=== PATIENT | female | born 1955 | race Caucasian/White ===

== ENCOUNTER → 2017-10-24 | Outpatient (CLI) | payer BC ==
[~2017-10-24] MED LIST: ALPR.25T PO; ASP81TEC; ASP81TEC PO; BYSTOLIC PO; CETI10TA17; CPR500T PO; DEXL30CA2 PO; ESCI10TA PO; ESCT10T; FLUT50DI; FLUT9.9S NS; HYDR12.56 PO; KETO-22 PO; LANS30CA; LEVO75TA57 PO; LORA-404 PO; LORA-877 PO; LORA10TA7 PO; NEBI5TAB8 PO; OMEP-254 PO; ONDA8TAB13 PO; ONDAN4ODT PO; PANT40SU PO; RNT150T; ROSU10TA PO; SERT50TA9 PO; SULF1TAB35 PO
== END ==
LOC: CARD 08:03
PROVIDERS: ATTEND Family Medicine
DX: R00.1 Bradycardia, unspecified (principal)
CPT/HCPCS: 93225; 93226

== ENCOUNTER 2019-01-28 17:27 | Emergency (ER) | payer BC ==
[~2019-01-28 17:27] MED LIST changes: -ROSU10TA PO; +ROSU10TA22 PO
--- OUTSIDE RECORDS SUMMARY | 2019-01-28 23:14 | XMS REPORT | Continuity of Care Document ---
Author Organization Unknown Address Unknown Allergies Active Description Code Type Severity Reaction Onset Reported/Identified Relationship to Patient Clinical Status Yes No Known Drug Allergies [id number] Drug Allergy Unknown N/A 12/08/2009 Medications There is no data. Problems Date Dx Coded Attending Type Code Diagnosis Diagnosed By 08/08/2011 Ot 789.00 ABDOMINAL PAIN, UNSPECIFIED SITE 08/08/2011 Ot 789.09 ABDOMINAL PAIN, OTHER SPECIFIED SITE 10/28/2011 Ot 530.81 ESOPHAGEAL REFLUX 10/28/2011 Ot 535.40 OTH SPECIFIED GASTRITIS,W/O MENTION OF H 10/28/2011 Ot 553.3 DIAPHRAGMATIC HERNIA 11/28/2011 Ot 780.2 SYNCOPE AND COLLAPSE 11/28/2011 Ot 780.4 DIZZINESS AND GIDDINESS 07/02/2012 Ot 211.3 BENIGN NEOPLASM LG BOWEL 07/02/2012 Ot 244.9 HYPOTHYROIDISM NOS 07/02/2012 Ot 300.00 ANXIETY STATE NOS 07/02/2012 Ot V12.72 PERSONAL HISTORY OF COLONIC POLYPS 07/02/2012 Ot V58.69 OTH MED,LT,CURRENT USE 07/11/2014 VERONA DIXON, CANDI Horvath Ot 272.4 10/23/2014 SERINA MEHTA MD Ot 786.50 04/30/2015 SERINA MEHTA MD Ot 786.50 04/30/2015 SERINA MEHTA MD Ot 786.50 07/09/2015 COLENDER DO, KIMBERLY S Ot E78.5 07/09/2015 ORENDER DO, KIMBERLY S Ot I10 07/09/2015 COLENDER DO, KIMBERLY S Ot R53.83 07/09/2015 ORENDER DO, KIMBERLY S Ot Z00.00 07/09/2015 SERINA MEHTA MD Ot E03.9 07/09/2015 SERINA MEHTA MD Ot E78.5 07/09/2015 SERINA MEHTA MD Ot I10 07/09/2015 SERINA MEHTA MD Ot K21.9 01/07/2016 TEREZA CAMPOS LEVERMAN Ot F41.9 ANXIETY DISORDER, UNSPECIFIED 01/07/2016 TEREZA CAMPOS LEVERMAN Ot R07.89 OTHER CHEST PAIN 01/07/2016 TEREZA CAMPOS LEVERMAN Ot R42 DIZZINESS AND GIDDINESS 01/08/2016 TEREZA CAMPOS LEVERMAN Ot F41.9 ANXIETY DISORDER, UNSPECIFIED 01/08/2016 TEREZA CAMPOS LEVERMAN Ot R07.89 OTHER CHEST PAIN 01/08/2016 TEREZA CAMPOS LEVERMAN Ot R42 DIZZINESS AND GIDDINESS 01/08/2016 CHARLY DUMONT, MITALI Bond Ot F41.9 ANXIETY DISORDER, UNSPECIFIED 01/08/2016 CHARLY DUMONT, MITALI Bond Ot R47.81 SLURRED SPEECH 01/08/2016 Ot 793.81 MAMMOGRAPHIC MICROCLACIFICATION 01/08/2016 Ot V76.12 OTH SCREEN MAMMO- MALIGN NEOPLASM OF TAZ 01/08/2016 Ot 793.89 OTH (ABN) FINDINGS ON RADIOLOGICAL EXAMI 01/08/2016 Ot 625.9 FEM GENITAL SYMPTOMS NOS 01/08/2016 Ot 719.45 JOINT PAIN-PELVIS 01/08/2016 Ot 625.9 FEM GENITAL SYMPTOMS NOS 01/08/2016 Ot V17.81 FAMILY HISTORY, OSTEOPOROSIS 01/08/2016 Ot V49.81 ASYMPT POSTMENOPAUSAL STATUS (AGE-RELATE 01/08/2016 Ot V82.81 SCREENING FOR OSTEOPOROSIS 01/08/2016 Ot 724.2 LUMBAGO 01/08/2016 Ot V72.84 EXAM PRE-OPERATIVE NOS 01/08/2016 Ot 433.30 MULT BILTRAL ARTERY OCCLUSION WO CEREBRA 01/08/2016 Ot 780.2 SYNCOPE AND COLLAPSE 01/08/2016 Ot 780.4 DIZZINESS AND GIDDINESS 01/08/2016 Ot V72.84 EXAM PRE-OPERATIVE NOS 01/08/2016 Ot 719.46 JOINT PAIN-L/LEG 01/08/2016 Ot V76.12 OTH SCREEN MAMMO- MALIGN NEOPLASM OF [place] 01/08/2016 Ot 401.9 HYPERTENSION NOS 01/08/2016 Ot 780.4 DIZZINESS AND GIDDINESS 01/08/2016 Ot 785.0 TACHYCARDIA NOS 01/08/2016 VANBECELAERE, ELIECER M KENNEL AIDE Ot 251.2 HYPOGLYCEMIA NOS 01/08/2016 Ot 401.9 HYPERTENSION NOS 01/08/2016 Ot 780.4 DIZZINESS AND GIDDINESS 01/08/2016 Ot 785.0 TACHYCARDIA NOS 01/08/2016 Ot 272.4 HYPERLIPIDEMIA NEC/NOS 01/08/2016 Ot 397.0 TRICUSPID VALVE DISEASE 01/08/2016 Ot 401.9 HYPERTENSION NOS 01/08/2016 Ot 424.0 MITRAL VALVE DISORDER 01/08/2016 INES SINGH KENNEL AIDE Ot 789.01 ABDOMINAL PAIN, RIGHT UPPER QUADRANT 01/08/2016 SERINA MEHTA MD Ot 272.4 HYPERLIPIDEMIA NEC/NOS 01/08/2016 SERINA MEHTA MD Ot 401.9 HYPERTENSION NOS 01/08/2016 SERINA MEHTA MD Ot 272.4 HYPERLIPIDEMIA NEC/NOS 01/08/2016 SERINA MEHTA MD Ot 401.9 HYPERTENSION NOS 01/08/2016 ORENDER DO, KIMBERLY S Ot 244.9 HYPOTHYROIDISM NOS 01/08/2016 ORENDER DO, KIMBERLY S Ot 401.9 HYPERTENSION NOS 01/08/2016 ORENDER DO, KIMBERLY S Ot 611.71 MASTODYNIA 01/08/2016 ORENDER DO, KIMBERLY S Ot 780.79 OTH MALAISE FATIGUE 01/08/2016 CANDI SLOAN Ot 272.4 HYPERLIPIDEMIA NEC/NOS 01/08/2016 SERINA MEHTA MD Ot 786.50 CHEST PAIN NOS 01/08/2016 ORENDER DO, KIMBERLY S Ot E78.5 HYPERLIPIDEMIA, UNSPECIFIED 01/08/2016 ORENDER DO, KIMBERLY S Ot I10 ESSENTIAL (PRIMARY) HYPERTENSION 01/08/2016 ORENDER DO, KIMBERLY S Ot R53.83 OTHER FATIGUE 01/08/2016 ORENDER DO, KIMBERLY S Ot Z00.00 ENCNTR FOR GENERAL ADULT MEDICAL EXAM W/ 01/08/2016 SERINA MEHTA MD Ot E03.9 HYPOTHYROIDISM, UNSPECIFIED 01/08/2016 SERINA MEHTA MD Ot E78.5 HYPERLIPIDEMIA, UNSPECIFIED 01/08/2016 SERINA MEHTA MD Ot I10 ESSENTIAL (PRIMARY) HYPERTENSION 01/08/2016 SERINA MEHTA MD Ot K21.9 GASTRO-ESOPHAGEAL REFLUX DISEASE WITHOUT 01/11/2016 CHARLY DUMONT, MITALI Bond Ot F41.9 ANXIETY DISORDER, UNSPECIFIED 01/11/2016 CHARLY DUMONT, MITALI Bond Ot R47.81 SLURRED SPEECH 01/11/2016 CHARLY DUMONT, MITALI Bond Ot F41.9 ANXIETY DISORDER, UNSPECIFIED 01/11/2016 CHARLY DUMONT, MITALI Bond Ot R47.81 SLURRED SPEECH 01/13/2016 TEREZA CAMPOS LEVERMAN Ot F41.9 ANXIETY DISORDER, UNSPECIFIED 01/13/2016 TEREZA CAMPOS LEVERMAN Ot R07.89 OTHER CHEST PAIN 01/13/2016 TEREZA CAMPOS LEVERMAN Ot R42 DIZZINESS AND GIDDINESS 03/09/2016 Ot 793.81 MAMMOGRAPHIC MICROCLACIFICATION 03/09/2016 Ot V76.12 OTH SCREEN MAMMO- MALIGN NEOPLASM OF TA[place] 03/09/2016 Ot 793.89 OTH (ABN) FINDINGS ON RADIOLOGICAL EXAMI 03/09/2016 Ot 625.9 FEM GENITAL SYMPTOMS NOS 03/09/2016 Ot 719.45 JOINT PAIN-PELVIS 03/09/2016 Ot 625.9 FEM GENITAL SYMPTOMS NOS 03/09/2016 Ot V17.81 FAMILY HISTORY, OSTEOPOROSIS 03/09/2016 Ot V49.81 ASYMPT POSTMENOPAUSAL STATUS (AGE-RELATE 03/09/2016 Ot V82.81 SCREENING FOR OSTEOPOROSIS 03/09/2016 Ot 724.2 LUMBAGO 03/09/2016 Ot V72.84 EXAM PRE-OPERATIVE NOS 03/09/2016 Ot 433.30 MULT BILTRAL ARTERY OCCLUSION WO CEREBRA 03/09/2016 Ot 780.2 SYNCOPE AND COLLAPSE 03/09/2016 Ot 780.4 DIZZINESS AND GIDDINESS 03/09/2016 Ot V72.84 EXAM PRE-OPERATIVE NOS 03/09/2016 Ot 719.46 JOINT PAIN-L/LEG 03/09/2016 Ot V76.12 OTH SCREEN MAMMO- MALIGN NEOPLASM OF [place] 03/09/2016 Ot 401.9 HYPERTENSION NOS 03/09/2016 Ot 780.4 DIZZINESS AND GIDDINESS 03/09/2016 Ot 785.0 TACHYCARDIA NOS 03/09/2016 ELIECER RODARTE KENNEL AIDE Ot 251.2 HYPOGLYCEMIA NOS 03/09/2016 Ot 401.9 HYPERTENSION NOS 03/09/2016 Ot 780.4 DIZZINESS AND GIDDINESS 03/09/2016 Ot 785.0 TACHYCARDIA NOS 03/09/2016 Ot 272.4 HYPERLIPIDEMIA NEC/NOS 03/09/2016 Ot 397.0 TRICUSPID VALVE DISEASE 03/09/2016 Ot 401.9 HYPERTENSION NOS 03/09/2016 Ot 424.0 MITRAL VALVE DISORDER 03/09/2016 INES SINGH Ot 789.01 ABDOMINAL PAIN, RIGHT UPPER QUADRANT 03/09/2016 SERINA MEHTA MD Ot 272.4 HYPERLIPIDEMIA NEC/NOS 03/09/2016 SERINA MEHTA MD Ot 401.9 HYPERTENSION NOS 03/09/2016 SERINA MEHTA MD Ot 272.4 HYPERLIPIDEMIA NEC/NOS 03/09/2016 SERINA MEHTA MD Ot 401.9 HYPERTENSION NOS 03/09/2016 ORENDER DO, KIMBERLY S Ot 244.9 HYPOTHYROIDISM NOS 03/09/2016 ORENDER DO, KIMBERLY S Ot 401.9 HYPERTENSION NOS 03/09/2016 ORENDER DO, KIMBERLY S Ot 611.71 MASTODYNIA 03/09/2016 ORENDER DO, KIMBERLY S Ot 780.79 OTH MALAISE FATIGUE 03/09/2016 CANDI SLOAN Ot 272.4 HYPERLIPIDEMIA NEC/NOS 03/09/2016 SERINA MEHTA MD Ot 786.50 CHEST PAIN NOS 03/09/2016 ORENDER DO, KIMBERLY S Ot E78.5 HYPERLIPIDEMIA, UNSPECIFIED 03/09/2016 ORENDER DO, KIBMERLY S Ot I10 ESSENTIAL (PRIMARY) HYPERTENSION 03/09/2016 COLENDER DO, KIMBERLY S Ot R53.83 OTHER FATIGUE 03/09/2016 ORENDER DO, KIMBERLY S Ot Z00.00 ENCNTR FOR GENERAL ADULT MEDICAL EXAM W/ 03/09/2016 SERINA MEHTA MD Ot E03.9 HYPOTHYROIDISM, UNSPECIFIED 03/09/2016 SERINA MEHTA MD Ot E78.5 HYPERLIPIDEMIA, UNSPECIFIED 03/09/2016 SERINA MEHTA MD Ot I10 ESSENTIAL (PRIMARY) HYPERTENSION 03/09/2016 SERINA MEHTA MD Ot K21.9 GASTRO-ESOPHAGEAL REFLUX DISEASE WITHOUT 03/09/2016 BRYANT WHITE MD Ot E87.1 HYPO-OSMOLALITY AND HYPONATREMIA 03/09/2016 BRYANT WHITE MD Ot F41.9 ANXIETY DISORDER, UNSPECIFIED 03/09/2016 BRYANT WHITE MD Ot I10 ESSENTIAL (PRIMARY) HYPERTENSION 03/09/2016 CHRISTOPHER DUMONT, BRYANT Youngblood Ot K11.7 DISTURBANCES OF SALIVARY SECRETION 03/09/2016 BRYANT WHITE MD Ot R11.0 NAUSEA 03/29/2016 Ot 793.81 MAMMOGRAPHIC MICROCLACIFICATION 03/29/2016 Ot V76.12 OTH SCREEN MAMMO- MALIGN NEOPLASM OF [place] 03/29/2016 Ot 793.89 OTH (ABN) FINDINGS ON RADIOLOGICAL EXAMI 03/29/2016 Ot 625.9 FEM GENITAL SYMPTOMS NOS 03/29/2016 Ot 719.45 JOINT PAIN-PELVIS 03/29/2016 Ot 625.9 FEM GENITAL SYMPTOMS NOS 03/29/2016 Ot V17.81 FAMILY HISTORY, OSTEOPOROSIS 03/29/2016 Ot V49.81 ASYMPT POSTMENOPAUSAL STATUS (AGE-RELATE 03/29/2016 Ot V82.81 SCREENING FOR OSTEOPOROSIS 03/29/2016 Ot 724.2 LUMBAGO 03/29/2016 Ot V72.84 EXAM PRE-OPERATIVE NOS 03/29/2016 Ot 433.30 MULT BILTRAL ARTERY OCCLUSION WO CEREBRA 03/29/2016 Ot 780.2 SYNCOPE AND COLLAPSE 03/29/2016 Ot 780.4 DIZZINESS AND GIDDINESS 03/29/2016 Ot V72.84 EXAM PRE-OPERATIVE NOS 03/29/2016 Ot 719.46 JOINT PAIN-L/LEG 03/29/2016 Ot V76.12 OTH SCREEN MAMMO- MALIGN NEOPLASM OF TA[place] 03/29/2016 Ot 401.9 HYPERTENSION NOS 03/29/2016 Ot 780.4 DIZZINESS AND GIDDINESS 03/29/2016 Ot 785.0 TACHYCARDIA NOS 03/29/2016 ELIECER RODARTE KENNEL AIDE Ot 251.2 HYPOGLYCEMIA NOS 03/29/2016 Ot 401.9 HYPERTENSION NOS 03/29/2016 Ot 780.4 DIZZINESS AND GIDDINESS 03/29/2016 Ot 785.0 TACHYCARDIA NOS 03/29/2016 Ot 272.4 HYPERLIPIDEMIA NEC/NOS 03/29/2016 Ot 397.0 TRICUSPID VALVE DISEASE 03/29/2016 Ot 401.9 HYPERTENSION NOS 03/29/2016 Ot 424.0 MITRAL VALVE DISORDER 03/29/2016 INES SINGHP Ot 789.01 ABDOMINAL PAIN, RIGHT UPPER QUADRANT 03/29/2016 SERINA MEHTA MD Ot 272.4 HYPERLIPIDEMIA NEC/NOS 03/29/2016 SERINA MEHTA MD Ot 401.9 HYPERTENSION NOS 03/29/2016 SERINA MEHTA MD Ot 272.4 HYPERLIPIDEMIA NEC/NOS 03/29/2016 SERINA MEHTA MD Ot 401.9 HYPERTENSION NOS 03/29/2016 ORENDER DO, KIMBERLY S Ot 244.9 HYPOTHYROIDISM NOS 03/29/2016 ORENDER DO, KIMBERLY S Ot 401.9 HYPERTENSION NOS 03/29/2016 ORENDER DO, KIMBERLY S Ot 611.71 MASTODYNIA 03/29/2016 ORENDER DO, KIMBERLY S Ot 780.79 OTH MALAISE FATIGUE 03/29/2016 CANDI SLOAN Ot 272.4 HYPERLIPIDEMIA NEC/NOS 03/29/2016 SERINA MEHTA MD Ot 786.50 CHEST PAIN NOS 03/29/2016 ORENDER DO, KIMBERLY S Ot E78.5 HYPERLIPIDEMIA, UNSPECIFIED 03/29/2016 ORENDER DO, KIMBERLY S Ot I10 ESSENTIAL (PRIMARY) HYPERTENSION 03/29/2016 ORENDER DO, KIMBERLY S Ot R53.83 OTHER FATIGUE 03/29/2016 ORENDER DO, KIMBERLY S Ot Z00.00 ENCNTR FOR GENERAL ADULT MEDICAL EXAM W/ 03/29/2016 SERINA MEHTA MD Ot E03.9 HYPOTHYROIDISM, UNSPECIFIED 03/29/2016 SERINA MEHTA MD Ot E78.5 HYPERLIPIDEMIA, UNSPECIFIED 03/29/2016 SERINA MEHTA MD Ot I10 ESSENTIAL (PRIMARY) HYPERTENSION 03/29/2016 SERINA MEHTA MD Ot K21.9 GASTRO-ESOPHAGEAL REFLUX DISEASE WITHOUT 03/30/2016 MAYCO RANKIN LEVERMAN Ot R07.9 CHEST PAIN, UNSPECIFIED 03/30/2016 MAYCO RANKIN LEVERMAN Ot R53.83 OTHER FATIGUE 03/30/2016 MAYCO RANKIN LEVERMAN Ot R61 GENERALIZED HYPERHIDROSIS 03/30/2016 MAYCO RANKIN LEVERMAN Ot R07.9 CHEST PAIN, UNSPECIFIED 03/30/2016 MAYCO RANKIN LEVERMAN Ot R53.83 OTHER FATIGUE 03/30/2016 MASSIELMAYCO LEVERMAN Ot R61 GENERALIZED HYPERHIDROSIS 04/01/2016 BRYANT WHITE MD Ot E87.1 HYPO-OSMOLALITY AND HYPONATREMIA 04/01/2016 CHRISTOPHER DUMONT, BRYANT Youngblood Ot F41.9 ANXIETY DISORDER, UNSPECIFIED 04/01/2016 BRYANT WHITE MD Ot I10 ESSENTIAL (PRIMARY) HYPERTENSION 04/01/2016 BRYANT WHITE MD Ot K11.7 DISTURBANCES OF SALIVARY SECRETION 04/01/2016 CHRISTOPHER DUMONT, BRYANT Youngblood Ot R11.0 NAUSEA 04/05/2016 MASSIEL MAYCOBETTY Shelton APRN Ot E87.1 HYPO-OSMOLALITY AND HYPONATREMIA 04/25/2016 MASSIEL MAYCOBETTY Shelton APRN Ot R07.9 CHEST PAIN, UNSPECIFIED 04/25/2016 MASSIEL MAYCO N LEVERMAN Ot R53.83 OTHER FATIGUE 04/25/2016 MAYCO RANKIN APRN Ot R61 GENERALIZED HYPERHIDROSIS 04/25/2016 MASSIEL MAYCO Nikita LEVERMAN Ot E87.1 HYPO-OSMOLALITY AND HYPONATREMIA 05/11/2016 CARCAMO DO, WEI L Ot E16.2 HYPOGLYCEMIA, UNSPECIFIED 05/11/2016 CARCAMO DO, WEI L Ot E87.1 HYPO-OSMOLALITY AND HYPONATREMIA 05/11/2016 CARCAMO DO, WEI L Ot R53.83 OTHER FATIGUE 05/18/2016 CARCAMO DO, WEI L Ot E16.2 HYPOGLYCEMIA, UNSPECIFIED 05/18/2016 CARCAMO DO, WEI L Ot E87.1 HYPO-OSMOLALITY AND HYPONATREMIA 05/18/2016 CARCAMO DO, WEI L Ot R53.83 OTHER FATIGUE 07/29/2016 Ot 793.81 MAMMOGRAPHIC MICROCLACIFICATION 07/29/2016 Ot V76.12 OTH SCREEN MAMMO- MALIGN NEOPLASM OF TAZ 07/29/2016 Ot 793.89 OTH (ABN) FINDINGS ON RADIOLOGICAL EXAMI 07/29/2016 Ot 625.9 FEM GENITAL SYMPTOMS NOS 07/29/2016 Ot 719.45 JOINT PAIN-PELVIS 07/29/2016 Ot 625.9 FEM GENITAL SYMPTOMS NOS 07/29/2016 Ot V17.81 FAMILY HISTORY, OSTEOPOROSIS 07/29/2016 Ot V49.81 ASYMPT POSTMENOPAUSAL STATUS (AGE-RELATE 07/29/2016 Ot V82.81 SCREENING FOR OSTEOPOROSIS 07/29/2016 Ot 724.2 LUMBAGO 07/29/2016 Ot V72.84 EXAM PRE-OPERATIVE NOS 07/29/2016 Ot 433.30 MULT BILTRAL ARTERY OCCLUSION WO CEREBRA 07/29/2016 Ot 780.2 SYNCOPE AND COLLAPSE 07/29/2016 Ot 780.4 DIZZINESS AND GIDDINESS 07/29/2016 Ot V72.84 EXAM PRE-OPERATIVE NOS 07/29/2016 Ot 719.46 JOINT PAIN-L/LEG 07/29/2016 Ot V76.12 OTH SCREEN MAMMO- MALIGN NEOPLASM OF TA[place] 07/29/2016 Ot 401.9 HYPERTENSION NOS 07/29/2016 Ot 780.4 DIZZINESS AND GIDDINESS 07/29/2016 Ot 785.0 TACHYCARDIA NOS 07/29/2016 ELIECER RODARTE KENNEL AIDE Ot 251.2 HYPOGLYCEMIA NOS 07/29/2016 Ot 401.9 HYPERTENSION NOS 07/29/2016 Ot 780.4 DIZZINESS AND GIDDINESS 07/29/2016 Ot 785.0 TACHYCARDIA NOS 07/29/2016 Ot 272.4 HYPERLIPIDEMIA NEC/NOS 07/29/2016 Ot 397.0 TRICUSPID VALVE DISEASE 07/29/2016 Ot 401.9 HYPERTENSION NOS 07/29/2016 Ot 424.0 MITRAL VALVE DISORDER 07/29/2016 INES SINGH KENNEL AIDE Ot 789.01 ABDOMINAL PAIN, RIGHT UPPER QUADRANT 07/29/2016 SERINA MEHTA MD Ot 272.4 HYPERLIPIDEMIA NEC/NOS 07/29/2016 SERINA MEHTA MD Ot 401.9 HYPERTENSION NOS 07/29/2016 SERINA MEHTA MD Ot 272.4 HYPERLIPIDEMIA NEC/NOS 07/29/2016 SERINA MEHTA MD Ot 401.9 HYPERTENSION NOS 07/29/2016 ORENDER DO, KIMBERLY S Ot 244.9 HYPOTHYROIDISM NOS 07/29/2016 COLENDER DO, KIMBERLY S Ot 401.9 HYPERTENSION NOS 07/29/2016 ORENDER DO, KIMBERLY S Ot 611.71 MASTODYNIA 07/29/2016 COLENDCARRINGTON DO KIMBERLY S Ot 780.79 OTH MALAISE FATIGUE 07/29/2016 JENSEN-MARISSA PA, CANDI K Ot 272.4 HYPERLIPIDEMIA NEC/NOS 07/29/2016 SERINA MEHTA MD Ot 786.50 CHEST PAIN NOS 07/29/2016 COLENDER , KIMBERLY S Ot E78.5 HYPERLIPIDEMIA, UNSPECIFIED 07/29/2016 ORENDER DO, KIMBERLY S Ot I10 ESSENTIAL (PRIMARY) HYPERTENSION 07/29/2016 COLENDER , KIMBERLY S Ot R53.83 OTHER FATIGUE 07/29/2016 COLENDER DO, KIMBERLY S Ot Z00.00 ENCNTR FOR GENERAL ADULT MEDICAL EXAM W/ 07/29/2016 SERINA MEHTA MD Ot E03.9 HYPOTHYROIDISM, UNSPECIFIED 07/29/2016 SERINA MEHTA MD Ot E78.5 HYPERLIPIDEMIA, UNSPECIFIED 07/29/2016 SERINA MEHTA MD, Ot I10 ESSENTIAL (PRIMARY) HYPERTENSION 07/29/2016 SERINA MEHTA MD Ot K21.9 GASTRO-ESOPHAGEAL REFLUX DISEASE WITHOUT 07/29/2016 MAYCO RANKIN LEVERMAN Ot R07.9 CHEST PAIN, UNSPECIFIED 07/29/2016 MAYCO RANKIN LEVERMAN Ot R53.83 OTHER FATIGUE 07/29/2016 MAYCO RANKIN LEVERMAN Ot R61 GENERALIZED HYPERHIDROSIS 07/29/2016 MAYCO RANKIN LEVERMAN Ot E87.1 HYPO-OSMOLALITY AND HYPONATREMIA 07/29/2016 WEI CARCAMO DO Ot E16.2 HYPOGLYCEMIA, UNSPECIFIED 07/29/2016 WEI CARCAMO DO Ot E87.1 HYPO-OSMOLALITY AND HYPONATREMIA 07/29/2016 WEI CARCAMO DO Ot R53.83 OTHER FATIGUE 08/01/2016 SERINA MEHTA MD Ot E78.2 MIXED HYPERLIPIDEMIA 08/01/2016 SERINA MEHTA MD Ot I10 ESSENTIAL (PRIMARY) HYPERTENSION 08/01/2016 SERINA MEHTA MD Ot I25.10 ATHSCL HEART DISEASE OF [place] CORONARY 08/01/2016 SERINA MEHTA MD Ot R07.89 OTHER CHEST PAIN 08/04/2016 SERINA MEHTA MD Ot E78.2 MIXED HYPERLIPIDEMIA 08/04/2016 SERINA MEHTA MD Ot I10 ESSENTIAL (PRIMARY) HYPERTENSION 08/04/2016 SERINA MEHTA MD Ot I25.10 ATHSCL HEART DISEASE OF [place] CORONARY 08/04/2016 SERINA MEHTA MD Ot R07.89 OTHER CHEST PAIN 08/10/2016 SERINA MEHTA MD Ot E78.2 MIXED HYPERLIPIDEMIA 08/10/2016 SERINA MEHTA MD Ot I10 ESSENTIAL (PRIMARY) HYPERTENSION 08/10/2016 SERINA MEHTA MD Ot I25.10 ATHSCL HEART DISEASE OF [place] CORONARY 08/10/2016 SERINA MEHTA MD Ot R07.89 OTHER CHEST PAIN 10/23/2017 Ot V72.84 EXAM PRE-OPERATIVE NOS 10/23/2017 Ot V76.12 OTH SCREEN MAMMO- MALIGN NEOPLASM OF TAZ 10/23/2017 Ot 401.9 HYPERTENSION NOS 10/23/2017 Ot 780.4 DIZZINESS AND GIDDINESS 10/23/2017 Ot 785.0 TACHYCARDIA NOS 10/23/2017 ELIECER RODARTE KENNEL AIDE Ot 251.2 HYPOGLYCEMIA NOS 10/23/2017 Ot 401.9 HYPERTENSION NOS 10/23/2017 Ot 780.4 DIZZINESS AND GIDDINESS 10/23/2017 Ot 785.0 TACHYCARDIA NOS 10/23/2017 Ot 272.4 HYPERLIPIDEMIA NEC/NOS 10/23/2017 Ot 397.0 TRICUSPID VALVE DISEASE 10/23/2017 Ot 401.9 HYPERTENSION NOS 10/23/2017 Ot 424.0 MITRAL VALVE DISORDER 10/23/2017 INES SINGH KENNEL AIDE Ot 789.01 ABDOMINAL PAIN, RIGHT UPPER QUADRANT 10/23/2017 SERINA MEHTA MD Ot 272.4 HYPERLIPIDEMIA NEC/NOS 10/23/2017 SERINA MEHTA MD Ot 401.9 HYPERTENSION NOS 10/23/2017 SERINA MEHTA MD Ot 272.4 HYPERLIPIDEMIA NEC/NOS 10/23/2017 SERINA MEHTA MD Ot 401.9 HYPERTENSION NOS 10/23/2017 ORENDER DO, KIMBERLY S Ot 244.9 HYPOTHYROIDISM NOS 10/23/2017 ORENDER DO, KIMBERLY S Ot 401.9 HYPERTENSION NOS 10/23/2017 ORENDER DO, KIMBERLY S Ot 611.71 MASTODYNIA 10/23/2017 ORENDER DO, KIMBERLY S Ot 780.79 OTH MALAISE FATIGUE 10/23/2017 CANDI SLOAN Ot 272.4 HYPERLIPIDEMIA NEC/NOS 10/23/2017 SERINA MEHTA MD Ot 786.50 CHEST PAIN NOS 10/23/2017 ORENDER DO, KIMBERLY S Ot E78.5 HYPERLIPIDEMIA, UNSPECIFIED 10/23/2017 ORENDER DO, KIMBERLY S Ot I10 ESSENTIAL (PRIMARY) HYPERTENSION 10/23/2017 ORENDER DO, KIMBERLY S Ot R53.83 OTHER FATIGUE 10/23/2017 ORENDER DO, KIMBERLY S Ot Z00.00 ENCNTR FOR GENERAL ADULT MEDICAL EXAM W/ 10/23/2017 SERINA MEHTA MD Ot E03.9 HYPOTHYROIDISM, UNSPECIFIED 10/23/2017 SERINA MEHTA MD Ot E78.5 HYPERLIPIDEMIA, UNSPECIFIED 10/23/2017 SERINA MEHTA MD, Ot I10 ESSENTIAL (PRIMARY) HYPERTENSION 10/23/2017 SERINA MEHTA MD Ot K21.9 GASTRO-ESOPHAGEAL REFLUX DISEASE WITHOUT 10/23/2017 MAYCO RANKIN LEVERMAN Ot R07.9 CHEST PAIN, UNSPECIFIED 10/23/2017 MAYCO RANKIN LEVERMAN Ot R53.83 OTHER FATIGUE 10/23/2017 MAYCO RANKIN LEVERMAN Ot R61 GENERALIZED HYPERHIDROSIS 10/23/2017 MAYCO RANKIN LEVERMAN Ot E87.1 HYPO-OSMOLALITY AND HYPONATREMIA 10/23/2017 CEDRIC CARCAMO DOISON Thomas Ot E16.2 HYPOGLYCEMIA, UNSPECIFIED 10/23/2017 CEDRIC CARCAMO DOISON L Ot E87.1 HYPO-OSMOLALITY AND HYPONATREMIA 10/23/2017 CEDRIC CARCAMO DOISON L Ot R53.83 OTHER FATIGUE 10/23/2017 SERINA MEHTA MD Ot E78.2 MIXED HYPERLIPIDEMIA 10/23/2017 SERINA MEHTA MD Ot I10 ESSENTIAL (PRIMARY) HYPERTENSION 10/23/2017 SERINA MEHTA MD Ot I25.10 ATHSCL HEART DISEASE OF [place] CORONARY 10/23/2017 SERINA MEHTA MD Ot R07.89 OTHER CHEST PAIN 10/25/2017 ORENDER DO, KIMBERLY S Ot R00.1 BRADYCARDIA, UNSPECIFIED 11/10/2017 ORENDER DO, KIMBERLY S Ot R00.1 BRADYCARDIA, UNSPECIFIED 01/28/2019 VANBECELAERE, ELIECER M KENNEL AIDE Ot 251.2 HYPOGLYCEMIA NOS 01/28/2019 CANDI SLOAN Ot 272.4 HYPERLIPIDEMIA NEC/NOS 01/28/2019 SERINA MEHTA MD Ot 786.50 CHEST PAIN NOS 01/28/2019 ORENDER DO, KIMBERLY S Ot E78.5 HYPERLIPIDEMIA, UNSPECIFIED 01/28/2019 ORENDER DO, KIMBERLY S Ot I10 ESSENTIAL (PRIMARY) HYPERTENSION 01/28/2019 ORENDER DO, KIMBERLY S Ot R53.83 OTHER FATIGUE 01/28/2019 ORENDER DO, KIMBERLY S Ot Z00.00 ENCNTR FOR GENERAL ADULT MEDICAL EXAM W/ 01/28/2019 SERINA MEHTA MD Ot E03.9 HYPOTHYROIDISM, UNSPECIFIED 01/28/2019 SERINA MEHTA MD Ot E78.5 HYPERLIPIDEMIA, UNSPECIFIED 01/28/2019 SERINA MEHTA MD, Ot I10 ESSENTIAL (PRIMARY) HYPERTENSION 01/28/2019 SERINA MEHTA MD Ot K21.9 GASTRO-ESOPHAGEAL REFLUX DISEASE WITHOUT 01/28/2019 MAYCO RANKIN LEVERMAN Ot R07.9 CHEST PAIN, UNSPECIFIED 01/28/2019 MAYCO RANKIN LEVERMAN Ot R53.83 OTHER FATIGUE 01/28/2019 MAYCO RANKIN LEVERMAN Ot R61 GENERALIZED HYPERHIDROSIS 01/28/2019 MAYCO RANKIN LEVERMAN Ot E87.1 HYPO-OSMOLALITY AND HYPONATREMIA 01/28/2019 CEDRIC CARCAMO DOISON L Ot E16.2 HYPOGLYCEMIA, UNSPECIFIED 01/28/2019 CEDRIC CARCAMO DOISON L Ot E87.1 HYPO-OSMOLALITY AND HYPONATREMIA 01/28/2019 CEDRIC CARCAMO DOISON L Ot R53.83 OTHER FATIGUE 01/28/2019 SERINA MEHTA MD Ot E78.2 MIXED HYPERLIPIDEMIA 01/28/2019 SERINA MEHTA MD, Ot I10 ESSENTIAL (PRIMARY) HYPERTENSION 01/28/2019 SERINA MEHTA MD Ot I25.10 ATHSCL HEART DISEASE OF [place] CORONARY 01/28/2019 SERINA MEHTA MD Ot R07.89 OTHER CHEST PAIN 01/28/2019 ORENDER DO, KIMBERLY S Ot R00.1 BRADYCARDIA, UNSPECIFIED Procedures There is no data. Results Test Result Range Complete blood count (CBC) with automated white blood cell (WBC) differential - 03/29/16 11:39 Blood leukocytes automated count (number/volume) 5.5 10*3/uL 4.3-11.0 Blood erythrocytes automated count (number/volume) 3.89 10*6/uL 4.35-5.85 Venous blood hemoglobin measurement (mass/volume) 12.4 g/dL 11.5-16.0 Blood hematocrit (volume fraction) 36 % 35-52 Automated erythrocyte mean corpuscular volume 93 [foz_us] 80-99 Automated erythrocyte mean corpuscular hemoglobin (mass per erythrocyte) 32 pg 25-34 Automated erythrocyte mean corpuscular hemoglobin concentration measurement (mass/volume) 34 g/dL 32-36 Automated erythrocyte distribution width ratio 12.3 % 10.0- 14.5 Automated blood platelet count (count/volume) 275 10*3/uL 130-400 Automated blood platelet mean volume measurement 10.1 [foz_us] 7.4-10.4 Automated blood neutrophils/100 leukocytes 65 % 42-75 Automated blood lymphocytes/100 leukocytes 19 % 12-44 Blood monocytes/100 leukocytes 12 % 0-12 Automated blood eosinophils/100 leukocytes 4 % 0-10 Automated blood basophils/100 leukocytes 1 % 0-10 Blood neutrophils automated count (number/volume) 3.5 10*3 1.8-7.8 Blood lymphocytes automated count (number/volume) 1.1 10*3 1.0-4.0 Blood monocytes automated count (number/volume) 0.6 10*3 0.0- 1.0 Automated eosinophil count 0.2 10*3/uL 0.0-0.3 Automated blood basophil count (count/volume) 0.0 10*3/uL 0.0-0.1 Fibrin D-dimer FEU measurement in platelet poor plasma (mass/volume) - 03/29/16 11:39 Fibrin D-dimer FEU measurement in platelet poor plasma (mass/volume) < ug/mL 0.00-0.49 Comprehensive metabolic panel - 03/29/16 11:39 Serum or plasma sodium measurement (moles/volume) 125 mmol/L 135-145 Serum or plasma potassium measurement (moles/volume) 4.2 mmol/L 3.6-5.0 Serum or plasma chloride measurement (moles/volume) 93 mmol/L 98-107 Carbon dioxide 25 mmol/L 21-32 Serum or plasma anion gap determination (moles/volume) 7 mmol/L 5-14 Serum or plasma urea nitrogen measurement (mass/volume) 13 mg/dL 7-18 Serum or plasma creatinine measurement (mass/volume) 0.74 mg/dL 0.60-1.30 Serum or plasma urea nitrogen/creatinine mass ratio 18 NRG Serum or plasma creatinine measurement with calculation of estimated glomerular filtration rate > NRG Serum or plasma glucose measurement (mass/volume) 100 mg/dL 70-105 Serum or plasma calcium measurement (mass/volume) 8.9 mg/dL 8.5-10.1 Serum or plasma total bilirubin measurement (mass/volume) 0.3 mg/dL 0.1-1.0 Serum or plasma alkaline phosphatase measurement (enzymatic activity/volume) 66 U/L 40-136 Serum or plasma aspartate aminotransferase measurement (enzymatic activity/volume) 27 U/L 5-34 Serum or plasma alanine aminotransferase measurement (enzymatic activity/volume) 33 U/L 0-55 Serum or plasma protein measurement (mass/volume) 6.7 g/dL 6.4-8.2 Serum or plasma albumin measurement (mass/volume) 4.4 g/dL 3.2-4.5 Magnesium - 03/29/16 11:39 Magnesium 2.2 mg/dL 1.8-2.4 Serum or plasma troponin i.cardiac measurement (mass/volume) - 03/29/16 11:39 Serum or plasma troponin i.cardiac measurement (mass/volume) < ng/mL <0.30 THYROID STIMULATING HORMONE - 03/29/16 11:39 THYROID STIMULATING HORMONE 5.45 u[iU]/mL 0.35-4.94 Serum or plasma thyroxine (T4) free measurement (mass/volume) - 03/29/16 11:39 Serum or plasma thyroxine (T4) free measurement (mass/volume) 0.99 ng/dL 0.70-1.48 Comprehensive metabolic panel - 03/31/16 14:56 Serum or plasma sodium measurement (moles/volume) 129 mmol/L 135-145 Serum or plasma potassium measurement (moles/volume) 4.3 mmol/L 3.6-5.0 Serum or plasma chloride measurement (moles/volume) 100 mmol/L 98-107 Carbon dioxide 23 mmol/L 21-32 Serum or plasma anion gap determination (moles/volume) 6 mmol/L 5-14 Serum or plasma urea nitrogen measurement (mass/volume) 12 mg/dL 7-18 Serum or plasma creatinine measurement (mass/volume) 0.75 mg/dL 0.60-1.30 Serum or plasma urea nitrogen/creatinine mass ratio 16 NRG Serum or plasma creatinine measurement with calculation of estimated glomerular filtration rate > NRG Serum or plasma glucose measurement (mass/volume) 136 mg/dL 70-105 Serum or plasma calcium measurement (mass/volume) 9.0 mg/dL 8.5-10.1 Serum or plasma total bilirubin measurement (mass/volume) 0.3 mg/dL 0.1-1.0 Serum or plasma alkaline phosphatase measurement (enzymatic activity/volume) 64 U/L 40-136 Serum or plasma aspartate aminotransferase measurement (enzymatic activity/volume) 29 U/L 5-34 Serum or plasma alanine aminotransferase measurement (enzymatic activity/volume) 31 U/L 0-55 Serum or plasma protein measurement (mass/volume) 6.9 g/dL 6.4-8.2 Serum or plasma albumin measurement (mass/volume) 4.3 g/dL 3.2-4.5 Comprehensive metabolic panel - 05/10/16 08:25 Serum or plasma sodium measurement (moles/volume) 136 mmol/L 135-145 Serum or plasma potassium measurement (moles/volume) 4.2 mmol/L 3.6-5.0 Serum or plasma chloride measurement (moles/volume) 102 mmol/L 98-107 Carbon dioxide 25 mmol/L 21-32 Serum or plasma anion gap determination (moles/volume) 9 mmol/L 5-14 Serum or plasma urea nitrogen measurement (mass/volume) 11 mg/dL 7-18 Serum or plasma creatinine measurement (mass/volume) 0.78 mg/dL 0.60-1.30 Serum or plasma urea nitrogen/creatinine mass ratio 14 NRG Serum or plasma creatinine measurement with calculation of estimated glomerular filtration rate > NRG Serum or plasma glucose measurement (mass/volume) 84 mg/dL 70-105 Serum or plasma calcium measurement (mass/volume) 9.2 mg/dL 8.5-10.1 Serum or plasma total bilirubin measurement (mass/volume) 0.4 mg/dL 0.1-1.0 Serum or plasma alkaline phosphatase measurement (enzymatic activity/volume) 63 U/L 40-136 Serum or plasma aspartate aminotransferase measurement (enzymatic activity/volume) 25 U/L 5-34 Serum or plasma alanine aminotransferase measurement (enzymatic activity/volume) 27 U/L 0-55 Serum or plasma protein measurement (mass/volume) 6.9 g/dL 6.4-8.2 Serum or plasma albumin measurement (mass/volume) 4.5 g/dL 3.2-4.5 Urine sodium measurement (moles/volume) - 05/10/16 08:25 Urine sodium measurement (moles/volume) 35 mmol/L 50-200 Hemoglobin A1c - 05/10/16 08:25 Hemoglobin A1c 5.2 % 4.5-6.2 THYROID STIMULATING HORMONE - 05/10/16 08:25 THYROID STIMULATING HORMONE 2.89 u[iU]/mL 0.35-4.94 Serum or plasma thyroxine (T4) free measurement (mass/volume) - 05/10/16 08:25 Serum or plasma thyroxine (T4) free measurement (mass/volume) 0.93 ng/dL 0.70-1.48 Morning cortisol measurement - 05/10/16 08:25 Cortisol AM 12.1 % 6.0-28.0 Serum iron and total iron binding capacity panel - 05/10/16 08:25 Serum or plasma iron measurement (mass/volume) 92 % 35-180 Total iron binding capacity and transferrin saturation measurement 30 % 15-50 Iron binding capacity [mass/volume] in serum or plasma 308 % 280-380 UIBC (unsaturated iron binding capacity) 216 % 55-450 Serum or plasma ferritin measurement (mass/volume) 60 % 15- 150 Urine osmolality - 05/10/16 08:25 Urine osmolality 329 % 250-1200 Cyanocobalamin measurement - 05/10/16 08:25 Vitamin B12 1025 pg/mL 200-1000 Encounters ACCT No. Visit Date/Time Discharge Status Pt. Type Provider Facility Loc./Unit Complaint 03/20/17 01/28/2019 16:37:03 ACT Outpatient Kimberly Livingston [id number] 01/28/2019 17:28:00 01/28/2019 17:52:00 DIS Emergency CHRISTOPHER DUMONT, BRYANT Beckett [facility] ER HYPERTENSION [id number] 10/24/2017 08:03:00 10/24/2017 23:59:59 CLS Outpatient KIMBERLY LIVINGSTON DO S Via [facility] CARD BRADYCARDIA [id number] 07/29/2016 07:48:00 07/29/2016 23:59:59 CLS Outpatient SERINA MEHTA MD Via [facility] LAB CAD,CP,HTN [id number] 05/10/2016 08:22:00 05/10/2016 23:59:59 CLS Outpatient CARCAMO DO, WEI L [facility] LAB FATIGUE, HYPONATREMIA [id number] 03/31/2016 14:38:00 03/31/2016 23:59:59 CLS Out[facility]SIEL [facility]CO [facility] [id number] 03/29/2016 11:01:00 03/29/2016 23:59:59 CLS Outpatient MAYCO RNAKIN LEVERMAN [facility] CARD CHEST PAIN/PRESSURE,FATIGUE,DIAPHORESIS [id number] 03/08/2016 23:52:00 03/09/2016 02:14:00 DIS Emergency CHRISTOPHER DUMONT, BRYANT Youngblood [facility] ER RINGING IN HEAD,NAUSEA,DIZZY [id number] 01/08/2016 09:17:00 01/08/2016 14:29:00 DIS Emergency CHARLY DUMONT, MITALI Bond [facility] ER FEELING LIKE PASSING OUT [id number] 01/07/2016 13:53:00 01/07/2016 15:45:00 DIS Emergency TEREZA CAMPOS LEVERMAN Via [facility] ER LEFT SIDE PAIN/DIZZINESS [id number] 06/23/2015 08:49:00 06/23/2015 23:59:59 CLS Outpatient SERINA MEHTA MD Via [facility] LAB GERD,HTN,HLP,HYPOTHROIDISM [id number] 06/23/2015 08:37:00 06/23/2015 23:59:59 CLS Outpatient KIMBERLY LIVINGSTON DO S Via [facility] LAB YEARLY LABS,HTN,HLP,FATIGUE [id number] 10/08/2014 08:12:00 10/08/2014 23:59:59 CLS Outpatient SERINA MEHTA MD Via [facility] CARD CP [id number] 06/27/2014 08:25:00 06/27/2014 23:59:59 CLS Outpatient CANDI SLOAN [facility] LAB HYPERLIPIDEMIA [id number] 08/12/2013 08:25:00 08/12/2013 23:59:59 CLS Outpatient TAYLAMARLOELIECER KENNEL AIDE Via [facility] LAB HYPOGLYCEMIA [id number] 07/31/2013 09:15:00 07/31/2013 23:59:59 CLS Outpatient KIMBERLY LIVINGSTON DO S Via [facility] RAD SCREENING,FATIGUE,HYPOTHYROIDISM,HTN [id number] 06/19/2013 07:54:00 06/19/2013 23:59:59 CLS Outpatient SERINA MEHTA MD Via [facility] LAB HYPERTENSION,HYPERLIPIDEMIA [id number] 03/08/2013 08:12:00 03/08/2013 23:59:59 CLS Outpatient SERINA MEHTA MD Via [facility] LAB HYPERTENSION,HYPERLIPIDEMIA [id number] 02/15/2013 17:57:00 02/15/2013 23:59:59 CLS Outpatient INES SINGH KENNEL AIDE Via [facility] LAB LUQ ABD PAIN [id number] 10/05/2012 07:44:00 Document Registration [id number] 08/18/2012 08:51:00 Document Registration [id number] 08/17/2012 11:02:00 Document Registration [id number] 07/02/2012 06:30:00 Document Registration [id number] 06/29/2012 13:04:00 Document Registration [id number] 06/29/2012 08:04:00 Document Registration [id number] 04/18/2012 13:01:00 Document Registration [id number] 11/29/2011 12:00:00 Document Registration [id number] 11/04/2011 13:38:00 Document Registration [id number] 10/28/2011 10:59:00 Document Registration [id number] 10/25/2011 08:29:00 Document Registration [id number] 09/28/2011 12:42:00 Document Registration [id number] 09/05/2011 08:37:00 Document Registration [id number] 08/30/2011 12:02:00 Document Registration [id number] 08/18/2011 13:43:00 Document Registration [id number] 08/15/2011 09:35:00 Document Registration [id number] 08/08/2011 11:29:00 Document Registration [id number] 07/04/2011 11:05:00 Document Registration [id number] 06/27/2011 08:45:00 Document Registration
[2019-01-29] MEDS ORDERED: LORA0.5T PO (11:56)
[2019-01-29] MEDS ORDERED: NEBI5TAB8 PO (12:04)
== END 2019-01-28 17:52 | disposition left against medical advice (07) ==
LOC: EDUNIT# 17:27 → ER 17:28
DX: I10 Essential (primary) hypertension (principal)

== ENCOUNTER 2019-01-29 10:31 | Emergency (ER) | payer BC ==
[~2019-01-29] VITALS: Ht 157.5 cm; Wt 63.5 kg
--- OUTSIDE RECORDS SUMMARY | 2019-01-29 10:35 | XMS REPORT | Continuity of Care Document ---
Author Organization Unknown Address Unknown Allergies Active Description Code Type Severity Reaction Onset Reported/Identified Relationship to Patient Clinical Status Yes No Known Drug Allergies [id number] Drug Allergy Unknown N/A 12/08/2009 Medications There [...] MEHTA MD Ot K21.9 01/07/2016 TEREZA CAMPOS FISHER EEL Ot F41.9 ANXIETY DISORDER, UNSPECIFIED 01/07/2016 TEREZA CAMPOS FISHER EEL Ot R07.89 OTHER CHEST PAIN 01/07/2016 TEREZA CAMPOS FISHER EEL Ot R42 DIZZINESS AND GIDDINESS 01/08/2016 TEREZA CAMPOS FISHER EEL Ot F41.9 ANXIETY DISORDER, UNSPECIFIED 01/08/2016 TEREZA CAMPOS FISHER EEL Ot R07.89 OTHER CHEST PAIN 01/08/2016 TEREZA CAMPOS FISHER EEL Ot R42 DIZZINESS AND GIDDINESS 01/08/2016 CHARLY [...] 785.0 TACHYCARDIA NOS 01/08/2016 VANBECELAERE, ELIECER M BACK END ARCHITECT Ot 251.2 HYPOGLYCEMIA NOS 01/08/2016 Ot 401.9 HYPERTENSION NOS 01/08/2016 Ot 780.4 DIZZINESS AND GIDDINESS 01/08/2016 Ot 785.0 TACHYCARDIA NOS 01/08/2016 Ot 272.4 HYPERLIPIDEMIA NEC/NOS 01/08/2016 Ot 397.0 TRICUSPID VALVE DISEASE 01/08/2016 Ot 401.9 HYPERTENSION NOS 01/08/2016 Ot 424.0 MITRAL VALVE DISORDER 01/08/2016 INES SINGH BACK END ARCHITECT Ot 789.01 ABDOMINAL PAIN, RIGHT UPPER QUADRANT [...] Ot R47.81 SLURRED SPEECH 01/13/2016 TEREZA CAMPOS FISHER EEL Ot F41.9 ANXIETY DISORDER, UNSPECIFIED 01/13/2016 TEREZA CAMPOS FISHER EEL Ot R07.89 OTHER CHEST PAIN 01/13/2016 TEREZA CAMPOS FISHER EEL Ot R42 DIZZINESS AND GIDDINESS 03/09/2016 Ot [...] Ot 785.0 TACHYCARDIA NOS 03/09/2016 ELIECER RODARTE BACK END ARCHITECT Ot 251.2 HYPOGLYCEMIA NOS 03/09/2016 Ot 401.9 [...] Ot E78.5 HYPERLIPIDEMIA, UNSPECIFIED 03/09/2016 ORENDER DO, KIMBERLY S Ot I10 ESSENTIAL (PRIMARY) HYPERTENSION 03/09/2016 [...] Ot 785.0 TACHYCARDIA NOS 03/29/2016 ELIECER RODARTE BACK END ARCHITECT Ot 251.2 HYPOGLYCEMIA NOS 03/29/2016 Ot 401.9 [...] GASTRO-ESOPHAGEAL REFLUX DISEASE WITHOUT 03/30/2016 MAYCO RANKIN FISHER EEL Ot R07.9 CHEST PAIN, UNSPECIFIED 03/30/2016 MAYCO RANKIN FISHER EEL Ot R53.83 OTHER FATIGUE 03/30/2016 MAYCO RANKIN FISHER EEL Ot R61 GENERALIZED HYPERHIDROSIS 03/30/2016 MAYCO RANKIN FISHER EEL Ot R07.9 CHEST PAIN, UNSPECIFIED 03/30/2016 MAYCO RANKIN FISHER EEL Ot R53.83 OTHER FATIGUE 03/30/2016 MASSIELMAYCO FISHER EEL Ot R61 GENERALIZED HYPERHIDROSIS 04/01/2016 BRYANT WHITE MD Ot E87.1 HYPO-OSMOLALITY AND HYPONATREMIA 04/01/2016 CHRISTOPHER DUMNOT, BRYANT Youngblood Ot F41.9 ANXIETY DISORDER, UNSPECIFIED 04/01/2016 BRYANT WHITE MD Ot I10 ESSENTIAL (PRIMARY) HYPERTENSION 04/01/2016 BRYANT WHITE MD Ot K11.7 DISTURBANCES OF SALIVARY SECRETION 04/01/2016 CHRISTOPHER DUMONT, BRYANT Youngblood Ot R11.0 NAUSEA 04/05/2016 MASSIEL MAYCOBETTY Shelton APRN Ot E87.1 HYPO-OSMOLALITY AND HYPONATREMIA 04/25/2016 MASSIEL MAYCOBETTY Shelton APRN Ot R07.9 CHEST PAIN, UNSPECIFIED 04/25/2016 MASSIEL MAYCO N FISHER EEL Ot R53.83 OTHER FATIGUE 04/25/2016 MAYCO RANKIN APRN Ot R61 GENERALIZED HYPERHIDROSIS 04/25/2016 MASSIEL MAYCO Nikita FISHER EEL Ot E87.1 HYPO-OSMOLALITY AND HYPONATREMIA 05/11/2016 CARCAMO [...] Ot 785.0 TACHYCARDIA NOS 07/29/2016 ELIECER RODARTE BACK END ARCHITECT Ot 251.2 HYPOGLYCEMIA NOS 07/29/2016 Ot 401.9 HYPERTENSION NOS 07/29/2016 Ot 780.4 DIZZINESS AND GIDDINESS 07/29/2016 Ot 785.0 TACHYCARDIA NOS 07/29/2016 Ot 272.4 HYPERLIPIDEMIA NEC/NOS 07/29/2016 Ot 397.0 TRICUSPID VALVE DISEASE 07/29/2016 Ot 401.9 HYPERTENSION NOS 07/29/2016 Ot 424.0 MITRAL VALVE DISORDER 07/29/2016 INES SINGH BACK END ARCHITECT Ot 789.01 ABDOMINAL PAIN, RIGHT UPPER QUADRANT [...] GASTRO-ESOPHAGEAL REFLUX DISEASE WITHOUT 07/29/2016 MAYCO RANKIN FISHER EEL Ot R07.9 CHEST PAIN, UNSPECIFIED 07/29/2016 MAYCO RANKIN FISHER EEL Ot R53.83 OTHER FATIGUE 07/29/2016 MAYCO RANKIN FISHER EEL Ot R61 GENERALIZED HYPERHIDROSIS 07/29/2016 MAYCO RANKIN FISHER EEL Ot E87.1 HYPO-OSMOLALITY AND HYPONATREMIA 07/29/2016 WEI CARCAMO DO Ot E16.2 HYPOGLYCEMIA, UNSPECIFIED 07/29/2016 WEI CARCAMO DO Ot E87.1 HYPO-OSMOLALITY AND HYPONATREMIA 07/29/2016 WEI CARCAMO DO Ot R53.83 OTHER FATIGUE 08/01/2016 SERINA MEHTA MD Ot E78.2 MIXED HYPERLIPIDEMIA 08/01/2016 SERINA MEHTA MD Ot I10 ESSENTIAL (PRIMARY) HYPERTENSION 08/01/2016 SERINA MEHTA MD Ot 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 08/01/2016 SERINA MEHTA MD Ot R07.89 OTHER CHEST PAIN 08/04/2016 SERINA MEHTA MD Ot E78.2 MIXED HYPERLIPIDEMIA 08/04/2016 SERINA MEHTA MD Ot I10 ESSENTIAL (PRIMARY) HYPERTENSION 08/04/2016 SERINA MEHTA MD Ot 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 08/04/2016 SERINA MEHTA MD Ot R07.89 OTHER CHEST PAIN 08/10/2016 SERINA MEHTA MD Ot E78.2 MIXED HYPERLIPIDEMIA 08/10/2016 SERINA MEHTA MD Ot I10 ESSENTIAL (PRIMARY) HYPERTENSION 08/10/2016 SERINA MEHTA MD Ot 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 08/10/2016 SERINA MEHTA MD Ot R07.89 OTHER CHEST PAIN 10/23/2017 Ot V72.84 EXAM PRE-OPERATIVE NOS 10/23/2017 Ot V76.12 OTH SCREEN MAMMO- MALIGN NEOPLASM OF TAZ 10/23/2017 Ot 401.9 HYPERTENSION NOS 10/23/2017 Ot 780.4 DIZZINESS AND GIDDINESS 10/23/2017 Ot 785.0 TACHYCARDIA NOS 10/23/2017 ELIECER RODARTE BACK END ARCHITECT Ot 251.2 HYPOGLYCEMIA NOS 10/23/2017 Ot 401.9 HYPERTENSION NOS 10/23/2017 Ot 780.4 DIZZINESS AND GIDDINESS 10/23/2017 Ot 785.0 TACHYCARDIA NOS 10/23/2017 Ot 272.4 HYPERLIPIDEMIA NEC/NOS 10/23/2017 Ot 397.0 TRICUSPID VALVE DISEASE 10/23/2017 Ot 401.9 HYPERTENSION NOS 10/23/2017 Ot 424.0 MITRAL VALVE DISORDER 10/23/2017 INES SINGH BACK END ARCHITECT Ot 789.01 ABDOMINAL PAIN, RIGHT UPPER QUADRANT [...] GASTRO-ESOPHAGEAL REFLUX DISEASE WITHOUT 10/23/2017 MAYCO RANKIN FISHER EEL Ot R07.9 CHEST PAIN, UNSPECIFIED 10/23/2017 MAYCO RANKIN FISHER EEL Ot R53.83 OTHER FATIGUE 10/23/2017 MAYCO RANKIN FISHER EEL Ot R61 GENERALIZED HYPERHIDROSIS 10/23/2017 MAYCO RANKIN FISHER EEL Ot E87.1 HYPO-OSMOLALITY AND HYPONATREMIA 10/23/2017 CEDRIC CARCAMO DOISON Thomas Ot E16.2 HYPOGLYCEMIA, UNSPECIFIED 10/23/2017 CEDRIC CARCAMO DOISON L Ot E87.1 HYPO-OSMOLALITY AND HYPONATREMIA 10/23/2017 CEDRIC CARCAMO DOISON L Ot R53.83 OTHER FATIGUE 10/23/2017 SERINA MEHTA MD Ot E78.2 MIXED HYPERLIPIDEMIA 10/23/2017 SERINA MEHTA MD Ot I10 ESSENTIAL (PRIMARY) HYPERTENSION 10/23/2017 SERINA MEHTA MD Ot 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 10/23/2017 SERINA MEHTA MD Ot R07.89 OTHER CHEST PAIN 10/25/2017 ORENDER DO, KIMBERLY S Ot R00.1 BRADYCARDIA, UNSPECIFIED 11/10/2017 ORENDER DO, KIMBERLY S Ot R00.1 BRADYCARDIA, UNSPECIFIED 01/28/2019 VANBECELAERE, ELIECER M BACK END ARCHITECT Ot 251.2 HYPOGLYCEMIA NOS 01/28/2019 CANDI SLOAN [...] GASTRO-ESOPHAGEAL REFLUX DISEASE WITHOUT 01/28/2019 MAYCO RANKIN FISHER EEL Ot R07.9 CHEST PAIN, UNSPECIFIED 01/28/2019 MAYCO RANKIN FISHER EEL Ot R53.83 OTHER FATIGUE 01/28/2019 MAYCO RANKIN FISHER EEL Ot R61 GENERALIZED HYPERHIDROSIS 01/28/2019 MAYCO RANKIN FISHER EEL Ot E87.1 HYPO-OSMOLALITY AND HYPONATREMIA 01/28/2019 CEDRIC CARCAMO DOISON L Ot E16.2 HYPOGLYCEMIA, UNSPECIFIED 01/28/2019 CEDRIC CARCAMO DOISON L Ot E87.1 HYPO-OSMOLALITY AND HYPONATREMIA 01/28/2019 CEDRIC CARCAMO DOISON L Ot R53.83 OTHER FATIGUE 01/28/2019 SERINA MEHTA MD Ot E78.2 MIXED HYPERLIPIDEMIA 01/28/2019 SERINA MEHTA MD, Ot I10 ESSENTIAL (PRIMARY) HYPERTENSION 01/28/2019 SERINA MEHTA MD Ot 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 01/28/2019 SERINA MEHTA MD Ot R07.89 [...] 03/20/17 01/28/2019 16:37:03 ACT Outpatient Kimberly Livingston [id number] 01/28/2019 17:28:00 01/28/2019 17:52:00 DIS Emergency CHRISTOPHER DUMONT, BRYANT Beckett [facility] ER HYPERTENSION [id number] 10/24/2017 08:03:00 10/24/2017 23:59:59 CLS Outpatient KIMBERLY LIVINGSTON DO S Via [facility] CARD BRADYCARDIA [id number] 07/29/2016 07:48:00 07/29/2016 23:59:59 CLS Outpatient SERINA MEHTA MD Via [facility] LAB CAD,CP,HTN [id number] 05/10/2016 08:22:00 05/10/2016 23:59:59 CLS Outpatient CARCAMO DO, WEI L [facility] LAB FATIGUE, HYPONATREMIA [id number] 03/31/2016 14:38:00 03/31/2016 23:59:59 CLS Outpatient MASSIEL MAYCO Nikita [facility]EL [facility] [id number] 03/29/2016 11:01:00 03/29/2016 23:59:59 CLS Outpatient MAYCO RANKIN FISHER EEL Via [facility] CARD CHEST PAIN/PRESSURE,FATIGUE,DIAPHORESIS [id number] 03/08/2016 23:52:00 03/09/2016 02:14:00 DIS Emergency CHRISTOPHER DUMONT, BRYANT Youngblood Via [facility] ER RINGING IN HEAD,NAUSEA,DIZZY [id number] 01/08/2016 09:17:00 01/08/2016 14:29:00 DIS Emergency CHARLY DUMONT, MITALI Bond Via [facility] ER FEELING LIKE PASSING OUT [id number] 01/07/2016 13:53:00 01/07/2016 15:45:00 DIS Emergency TEERZA CAMPOS FISHER EEL Via [facility] ER LEFT SIDE PAIN/DIZZINESS [id number] 06/23/2015 08:49:00 06/23/2015 23:59:59 CLS Outpatient SERINA MEHTA MD Via [facility] LAB GERD,HTN,HLP,HYPOTHROIDISM [id number] 06/23/2015 08:37:00 06/23/2015 23:59:59 CLS Outpatient KIMBERLY LIVINGSTON DO S Via [facility] LAB YEARLY LABS,HTN,HLP,FATIGUE [id number] 10/08/2014 08:12:00 10/08/2014 23:59:59 CLS Outpatient SERINA MEHTA MD Via [facility] CARD CP [id number] 06/27/2014 08:25:00 06/27/2014 23:59:59 CLS Outpatient CANDI SLOAN Via [facility] LAB HYPERLIPIDEMIA [id number] 08/12/2013 08:25:00 08/12/2013 23:59:59 CLS Outpatient TAYLAMARLOELIECER BACK END ARCHITECT Via [facility] LAB HYPOGLYCEMIA [id number] 07/31/2013 09:15:00 07/31/2013 23:59:59 CLS Outpatient KIMBERLY LIVINGSTON DO S Via [facility] RAD SCREENING,FATIGUE,HYPOTHYROIDISM,HTN [id number] 06/19/2013 07:54:00 06/19/2013 23:59:59 CLS Outpatient SERINA MEHTA MD Via [facility] LAB HYPERTENSION,HYPERLIPIDEMIA [id number] 03/08/2013 08:12:00 03/08/2013 23:59:59 CLS Outpatient SERINA MEHTA MD Via [facility] LAB HYPERTENSION,HYPERLIPIDEMIA [id number] 02/15/2013 17:57:00 02/15/2013 23:59:59 CLS Outpatient INES SINGH BACK END ARCHITECT Via [facility] LAB LUQ ABD PAIN [id number] 10/05/2012 07:44:00 Document Registration [id number] 08/18/2012 08:51:00 Document Registration [id number] 08/17/2012 11:02:00 Document Registration [id number] 07/02/2012 06:30:00 Document Registration [id number] 06/29/2012 13:04:00 Document Registration [id number] 06/29/2012 08:04:00 Document Registration [id number] 04/18/2012 13:01:00 Document Registration [id number] 11/29/2011 12:00:00 Document Registration [id number] 11/04/2011 13:38:00 Document Registration [id number] 10/28/2011 10:59:00 Document Registration [id number] 10/25/2011 08:29:00 Document Registration [id number] 09/28/2011 12:42:00 Document Registration [id number] 09/05/2011 08:37:00 Document Registration [id number] 08/30/2011 12:02:00 Document Registration [id number] 08/18/2011 13:43:00 Document Registration [id number] 08/15/2011 09:35:00 Document Registration [id number] 08/08/2011 11:29:00 Document Registration [id number] 07/04/2011 11:05:00 Document Registration [id number] 06/27/2011 08:45:00 Document Registration
--- NOTE | 2019-01-29 10:44 | ED General ---
General Stated Complaint: HIGH BP Source of Information: Patient Exam Limitations: No Limitations History of Present Illness Date Seen by Provider: Jan 29, 2019 Time Seen by Provider: 10:42 Initial Comments ER with a blood pressure. She reports some indigestion and shortness of breath with this. She noticed this upon awakening this morning a bit worse than usual, checked her blood pressure currently 150/90. Starting about a month ago she developed symptoms similar to the ones she is experiencing currently, but it might be related to her Zoloft she began reducing the dose and has since tapered off completely from the Zoloft. She states the symptoms have gotten worse. Timing/Duration: Changing Over Time, Getting Worse Severity: Moderate Associated Systoms: No Chest Pain, No Cough, No Diaphoresis, No Fever/Chills, No Headaches, No Loss of Appetite, No Malaise, No Nausea/Vomiting, No Seizure, No Shortness of Air, No Syncope, No Weakness Allergies and Home Medications Allergies Coded Allergies: No Known Drug Allergies (Verified , 12/08/09) Home Medications Fluticasone Propionate 9.9 Ml [place].susp, 1 SPRAY NS BID, (Reported) Loratadine 10 Mg Tablet, 10 MG PO DAILY, (Reported) Lorazepam 0.5 Mg Tablet, 0.5 MG PO Q6H PRN for DISCOMFORT Prescribed by: MITALI PARKS MD on 01/08/16 1413 Lorazepam 0.5 Mg Tablet, 0.5 MG PO BID PRN for ANXIETY Prescribed by: TEREZA CAMPOS on 01/29/19 1156 Nebivolol HCl 5 Mg Tablet, 5 MG PO DAILY, (Reported) Omeprazole Magnesium 20 Mg Capsule.dr, 20 MG PO DAILY, (Reported) Ondansetron 8 Mg Tab.rapdis, 8 MG PO DAILY PRN for NAUSEA, (Reported) Rosuvastatin Calcium 10 Mg Tablet, 10 MG PO DAILY, (Reported) Sertraline HCl 50 Mg Tablet, 50 MG PO DAILY, (Reported) Patient Home Medication List Home Medication List Reviewed: Yes Review of Systems Review of Systems Constitutional: see HPI EENTM: see HPI Respiratory: see HPI, short of breath Cardiovascular: no symptoms reported; No chest pain Genitourinary: no symptoms reported Musculoskeletal: no symptoms reported Skin: no symptoms reported Psychiatric/Neurological: See HPI, Anxiety Hematologic/Lymphatic: No Symptoms Reported Immunological/Allergic: no symptoms reported Past Hdifpqr-Dwubfu-Cglfor Hx Seasonal Allergies Seasonal Allergies: Yes (gets allergy shots) Past Medical History High Cholesterol, Hypertension Headaches /Migraines Reproductive Disorders: No Hiatal Hernia Arthritis Hypothyroidsim Anxiety, Depression Physical Exam Vital Signs Vital Signs - First Documented 01/29/19 01/29/19 10:35 11:59 Temp 98.5 Pulse 81 Resp 20 B/P (MAP) 170/94 (119) Pulse Ox 99 O2 Delivery Room Air Capillary Refill : Height, Weight, BMI Height: 5'2.00" Weight: 138lbs. 0.0oz. [id number]; 25.2 BMI Method:Stated General Appearance: No Apparent Distress, WD/WN, Anxious Eyes: Bilateral Eye Normal Inspection, Bilateral Eye PERRL, Bilateral Eye EOMI HEENT: PERRL/EOMI, TMs Normal Neck: Full Range of Motion, Normal Inspection Respiratory: Lungs Clear, Normal Breath Sounds, No Accessory Muscle Use, No Respiratory Distress Cardiovascular: Regular Rate, Rhythm, Normal Peripheral Pulses Gastrointestinal: Normal Bowel Sounds, Non Tender, Soft Extremity: Normal Capillary Refill, Normal Inspection Neurologic/Psychiatric: Alert, Oriented x3 Skin: Normal Color, Warm/Dry Progress/Results/Core Measures Suspected Sepsis SIRS Temperature: Pulse: Respiratory Rate: Laboratory Tests 01/29/19 10:40: White Blood Count 4.9 Blood Pressure / Mean: Laboratory Tests 01/29/19 10:40: Creatinine 0.76, Platelet Count 285, Total Bilirubin 0.4 Results/Orders Lab Results Laboratory Tests Test 01/29/19 10:40 Range/Units White Blood Count 4.9 4.3-11.0 10^3/uL Red Blood Count 4.29 L 4.35-5.85 10^6/uL Hemoglobin 13.6 11.5-16.0 G/DL Hematocrit 40 35-52 % Mean Corpuscular Volume 94 80-99 FL Mean Corpuscular Hemoglobin 32 25-34 PG Mean Corpuscular Hemoglobin Concent 34 32-36 G/DL Red Cell Distribution Width 12.8 10.0-14.5 % Platelet Count 285 130-400 10^3/uL Mean Platelet Volume 9.7 7.4-10.4 FL Neutrophils (%) (Auto) 52 42-75 % Lymphocytes (%) (Auto) 27 12-44 % Monocytes (%) (Auto) 12 0-12 % Eosinophils (%) (Auto) 8 0-10 % Basophils (%) (Auto) 1 0-10 % Neutrophils # (Auto) 2.5 1.8-7.8 X 10^3 Lymphocytes # (Auto) 1.4 1.0-4.0 X 10^3 Monocytes # (Auto) 0.6 0.0-1.0 X 10^3 Eosinophils # (Auto) 0.4 H 0.0-0.3 10^3/uL Basophils # (Auto) 0.0 0.0-0.1 10^3/uL D-Dimer 0.39 0.00-0.49 UG/ML Sodium Level 133 L 135-145 MMOL/L Potassium Level 3.8 3.6-5.0 MMOL/L Chloride Level 100 98-107 MMOL/L Carbon Dioxide Level 26 21-32 MMOL/L Anion Gap 7 5-14 MMOL/L Blood Urea Nitrogen 10 7-18 MG/DL Creatinine 0.76 0.60-1.30 MG/DL Estimat Glomerular Filtration Rate > 60 BUN/Creatinine Ratio 13 Glucose Level 98 70-105 MG/DL Calcium Level 10.0 8.5-10.1 MG/DL Corrected Calcium 8.5-10.1 MG/DL Total Bilirubin 0.4 0.1-1.0 MG/DL Aspartate Amino Transf (AST/SGOT) 29 5-34 U/L Alanine Aminotransferase (ALT/SGPT) 31 0-55 U/L Alkaline Phosphatase 61 40-136 U/L Troponin I < 0.028 <0.028 NG/ML Total Protein 7.7 6.4-8.2 GM/DL Albumin 4.8 H 3.2-4.5 GM/DL Lipase 30 8-78 U/L Thyroid Stimulating Hormone (TSH) 4.18 0.35-4.94 UIU/ML Free Thyroxine 0.99 0.70-1.48 NG/DL My Orders Orders - TEREZA CAMPOS [employer] Cbc With Automated Diff (01/29/19 10:39) Comprehensive Metabolic Panel (01/29/19 10:39) Lipase (01/29/19 10:39) Ekg Tracing (01/29/19 10:39) Troponin I (01/29/19 10:39) Fibrin Degradation Products (01/29/19 10:39) Ed Iv/Invasive Line Start (01/29/19 10:39) Clonidine Tablet (Catapres Tablet) (01/29/19 10:45) Lorazepam Tablet (Ativan Tablet) (01/29/19 10:45) Thyroid Stimulating Hormone (01/29/19 10:49) Free T4 (Free Thyroxine) (01/29/19 10:49) Antacid Suspension (Mylanta Suspension (01/29/19 11:00) Lidocaine 2% Viscous 15 Ml (Xylocaine Vi (01/29/19 11:00) Medications Given in ED Current Medications Medications Dose Ordered Sig/Renetta Route Start Time Stop Time Status Last Admin Dose Admin Al Hydrox/Mg Hydrox/Simethicone 30 ml ONCE ONCE PO 01/29/19 11:00 01/29/19 11:01 DC 01/29/19 11:00 30 ML Lidocaine HCl 15 ml ONCE ONCE PO 01/29/19 11:00 01/29/19 11:01 DC 01/29/19 11:00 15 ML Lorazepam 0.5 mg ONCE ONCE PO 01/29/19 10:45 01/29/19 10:46 DC 01/29/19 11:00 0.5 MG Vital Signs/I&O 01/29/19 01/29/19 10:35 11:59 Temp 98.5 98.0 Pulse 81 61 Resp 20 16 B/P (MAP) 170/94 (119) 115/80 (92) Pulse Ox 99 O2 Delivery Room Air Room Air Capillary Refill : Departure Communication (Admissions) 1156-states she is feeling much better overall after only GI cocktail and Ativan. Blood pressure is down to 115/88 with only present medications was 174/94 on arrival. 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 She also states that she was switched from Bystolic 5 mg daily to metoprolol, noticing no symptoms with metoprolol and would like to change back to the Bystolic.. Impression Primary Impression: Episode of hypertension Additional Impression: Anxiety Disposition: 01 HOME, SELF-CARE Condition: Improved Departure-Patient Inst. Decision time for Depature: 11:55 Referrals: GABBI LIVINGSTON DO (PCP/Family) Primary Care Physician Patient Instructions: Anxiety, Adult (DC), Stress Add. Discharge Instructions: Medication as directed 2. Call Dr. Livingston today to make an appointment to be seen later this week for recheck. Medication as directed. You should restart Zoloft. In regards to the acid reflux, you can use Pepcid or Zantac (ranitidine or famotidine) as directed on the bottle which is not associated with osteopenia. You can supplement that occasionally with Maalox liquid if needed. You can stop the metoprolol and replace it with the bystolic. Scripts Nebivolol HCl (Bystolic) 5 Mg Tablet 5 MG PO DAILY, #30 TAB Prov: TEREZA CAMPOS APRN 01/29/19 Lorazepam (Lorazepam) 0.5 Mg Tablet 0.5 MG PO BID PRN for ANXIETY, #10 TAB Prov: TEREZA CAMPOS APRN 01/29/19 Copy Copies To 1: SERINA MEHTA MD; GABBI LIVINGSTON PETER J APRN Jan 29, 2019 10:44
[2019-01-29] MEDS ORDERED: LORazepam 0.5 MG (ATIVAN) TABLET PO ONE (10:45)
[2019-01-29] MEDS ORDERED: cloNIDine 0.1 MG (CATAPRES) TAB PO ONE (10:45)
[2019-01-29 10:57] LABS: BASOPHILS % (AUTO) 1 % (0-10); EOSINOPHILS # (AUTO) 0.4 10^3/uL (0.0-0.3); EOSINOPHILS % (AUTO) 8 % (0-10); HEMATOCRIT 40 % (35-52); HEMOGLOBIN 13.6 G/DL (11.5-16.0); LYMPHOCYTES # (AUTO) 1.4 X 10^3 (1.0-4.0); LYMPHOCYTES % (AUTO) 27 % (12-44); MEAN CORPUSCULAR HEMOGLOBIN 32 PG (25-34); MEAN CORPUSCULAR HGB CONC 34 G/DL (32-36); MEAN CORPUSCULAR VOLUME 94 FL (80-99); MEAN PLATELET VOLUME 9.7 FL (7.4-10.4); MONOCYTES # (AUTO) 0.6 X 10^3 (0.0-1.0); MONOCYTES % (AUTO) 12 % (0-12); NEUTROPHILS # (AUTO) 2.5 X 10^3 (1.8-7.8); NEUTROPHILS % (AUTO) 52 % (42-75); PLATELET COUNT 285 10^3/uL (130-400); RED CELL DISTRIBUTION WIDTH 12.8 % (10.0-14.5); WHITE BLOOD COUNT 4.9 10^3/uL (4.3-11.0)
[2019-01-29] MEDS ORDERED: ANTACID SUSP 30 ML UDC (MYLANTA) PO ONE (11:00)
[2019-01-29] MEDS ORDERED: LIDOCAINE 2% VISCOUS 15 ML UDC PO ONE (11:00)
[2019-01-29 11:27] LABS: ALANINE AMINOTRANSFERASE 31 U/L (0-55); ALBUMIN 4.8 GM/DL (3.2-4.5); ALKALINE PHOSPHATASE 61 U/L (40-136); BILIRUBIN,TOTAL 0.4 MG/DL (0.1-1.0); BUN/CREATININE RATIO 13; CARBON DIOXIDE 26 MMOL/L (21-32); CHLORIDE 100 MMOL/L (98-107); CREATININE SERUM 0.76 MG/DL (0.60-1.30); GFR ESTIMATED > 60; GLUCOSE 98 MG/DL (70-105); LIPASE 30 U/L (8-78); POTASSIUM 3.8 MMOL/L (3.6-5.0); SODIUM 133 MMOL/L (135-145); TOTAL PROTEIN 7.7 GM/DL (6.4-8.2)
--- NOTE | 2019-01-29 11:37 | NUR ---
pt verbalized felling better. pt states has high stress at home.
[2019-01-29 11:49] LABS: FREE T4 (FREE THYROXINE) 0.99 NG/DL (0.70-1.48)
[2019-01-29] MEDS ORDERED: LORA0.5T PO (11:56)
[2019-01-29 11:59] VITALS: BP 115/80
[2019-01-29] MEDS ORDERED: NEBI5TAB8 PO (12:04)
== END 2019-01-29 12:15 | disposition home or self-care (01) ==
LOC: ER 10:31
DX: I10 Essential (primary) hypertension (principal); F41.9 Anxiety disorder, unspecified; E78.00 Pure hypercholesterolemia, unspecified; E03.9 Hypothyroidism, unspecified; F32.9 Major depressive disorder, single episode, unspecified; Z79.51 Long term (current) use of inhaled steroids; Z98.890 Other specified postprocedural states
CPT/HCPCS: 36415; 80053; 83690; 84439; 84443; 84484; 85025; 85379; 93005

== ENCOUNTER → 2020-11-13 | Outpatient (CLI) | payer BC ==
[~2020-11-13] MED LIST changes: +BARIUM for suspension 96% w/w (Vanilla Silq Medium Density) PO ONE; +BARIUM for suspension 98% w/w (Vanilla Silq High Density) PO ONE; +LORA0.5T PO; +SERT-413 PO; -SERT50TA9 PO
--- NOTE | 2020-11-13 09:51 | Diagnostic Imaging Report ---
Indication: Acid reflux, nausea Small bowel study Stomach emptied promptly. Small bowel mucosal pattern is normal. There are no dilated loops. There is no abnormal separation of loops. Contrast is in the colon by 30 minutes and in the rectum by 45 minutes. IMPRESSION: Normal small bowel study. There is no evidence of hiatal hernia or reflux. Dictated by: Dictated on workstation # [id number]
--- NOTE | 2020-11-13 10:11 | Diagnostic Imaging Report ---
INDICATION: Atrial fibrillation protocol. Bolus IV contrast with MIP reconstruction. FINDINGS: There is good opacification of the pulmonary arteries and veins as well as the left atrium. The left atrium is not enlarged. There are 3 main pulmonary veins returning from the right lung with accessory pulmonary vein from the right upper lobe posteriorly draining to the central portion of the posterior wall of the atrium near the left upper lobe pulmonary venous infundibulum. Aorta appears normal. There is no mediastinal or hilar adenopathy. The lungs are well-aerated. There are no findings to indicate pulmonary emboli or thrombus of the atrium. The lungs are clear. No pleural effusions or pericardial effusions. No bony lesions demonstrated. IMPRESSION: Accessory pulmonary venous return noted on the right. No other abnormalities demonstrated. Dictated by: Dictated on workstation # [id number]
== END ==
LOC: RAD 08:00
PROVIDERS: ATTEND Internal Medicine Gastroenterology
DX: K30 Functional dyspepsia (principal); K21.00 Gastro-esophageal reflux disease with esophagitis, without bleeding
CPT/HCPCS: 74246; 74248

== ENCOUNTER → 2021-03-22 | Outpatient (CLI) | payer MEDICARE, OTHER ==
[~2021-03-22] MED LIST changes: -BARIUM for suspension 96% w/w (Vanilla Silq Medium Density) PO ONE; -BARIUM for suspension 98% w/w (Vanilla Silq High Density) PO ONE; -SULF1TAB35 PO; +SULF1TAB38 PO
--- NOTE | 2021-03-22 17:16 | Diagnostic Imaging Report ---
INDICATION: Cough and wheezing and pneumonia. TECHNIQUE: PA and lateral chest obtained at 05:13 p.m. and compared to 03/29/2016. FINDINGS: Heart and mediastinal silhouette are normal in appearance. The lungs are clear. There is no pneumothorax or pleural fluid. IMPRESSION: Negative chest. Dictated by: Dictated on workstation # [id number]
== END ==
LOC: RAD 16:48
PROVIDERS: ATTEND Nurse Practitioner Family
DX: J16.8 Pneumonia due to other specified infectious organisms (principal); Z20.828 Contact with and (suspected) exposure to other viral communicable diseases
CPT/HCPCS: 71047

== ENCOUNTER → 2021-07-28 | Outpatient (CLI) | payer MEDICARE, OTHER | LOC: CARD 08:32 | PROVIDERS: ATTEND Internal Medicine Cardiovascular Disease | DX: I25.10 Atherosclerotic heart disease of native coronary artery without angina pectoris (principal); I10 Essential (primary) hypertension ==

== ENCOUNTER → 2021-07-28 | Outpatient (CLI) | payer MEDICARE, OTHER ==
[~2021-07-28] VITALS: Ht 157 cm; Wt 66.0 kg
[2021-07-28] VITALS (9 sets, daily range): BP systolic 116–147; BP diastolic 62–77
[~2021-07-28] MED LIST changes: +CATHETER FLUSH 10 ML SYR IV PRN
--- NOTE | 2021-07-28 15:39 | Cardiology Stress Test Report ---
Stress Test Report Date of Procedure/Referring: Date of Procedure: Jul 28, 2021 PCP Serina Lopez MD Admitting Physician Kimberly Livingston DO Indications: HTN Baseline Heart Rate: 51 Baseline Blood Pressure: Blood Pressure Systolic: 117 Blood Pressure Diastolic: 75 Vital Signs Date Time Temp Pulse Resp B/P (MAP) Pulse Ox O2 Delivery O2 Flow Rate FiO2 07/28/21 09:42 59 16 133/77 (95) 98 Room Air Baseline Vital Signs Vital Signs Date Time Temp Pulse Resp B/P (MAP) Pulse Ox O2 Delivery O2 Flow Rate FiO2 07/28/21 09:42 59 16 133/77 (95) 98 Room Air Baseline EKG: Baseline EKG: NSR Summary: After explaining the procedure and details to the patient, she signed the consent and was brought to the stress nuclear laboratory. Patient exercised on standard Aubrey protocol, EKG, heart rate and blood pressure were monitored continuously, resting and stress doses of radio tracer were injected, imaging was acquired and reviewed in the short axis, horizontal long axis and vertical long axis views Patient was able to exercise for a total of 7.13 minutes on Aubrey protocol, ME Ts 8.7 Maximum heart rate 139 Maximum blood pressure 166/64 Stress EKG, Minimal nondiagnostic changes Recovery EKG, Return to baseline TID: 0.99 SSS: 3 SDS: 2 EF: 68 Conclusion: 1. Fair exercise tolerance for a total of 7 minutes and 13 seconds on standard Aubrey protocol, 8.7 METS achieving 89% of maximal expected heart rate 2. Appropriate heart rate and blood pressure response to exercise return to baseline during recovery 3. Nondiagnostic EKG changes with exercise return to baseline during recovery 4. No significant ischemia or infarction on SPECT images 5. Normal left ventricular size, EF 68% SERINA LOPEZ MD Jul 28, 2021 15:39
== END ==
LOC: CARD 12:30
PROVIDERS: ATTEND Internal Medicine Cardiovascular Disease
DX: I10 Essential (primary) hypertension (principal); I25.10 Atherosclerotic heart disease of native coronary artery without angina pectoris
CPT/HCPCS: 78452; 93017; 93306; A9502

== ENCOUNTER 2023-02-07 13:58 | Observation (INO) | payer MEDICARE, OTHER ==
[~2023-02-07] VITALS: Ht 157 cm; Wt 62.8 kg
[~2023-02-07 13:58] MED LIST changes: -CATHETER FLUSH 10 ML SYR IV PRN; +NF-CRES10T PO; -ROSU10TA22 PO
--- NOTE | 2023-02-07 14:27 | ED Integumentary General ---
"General Chief Complaint: Skin/Wound Problems Stated Complaint: CAT SCRATCHES | INFECTION Nursing Triage Note: PT AMBULATE TO ROOM 06 WITHOUT DIFFICULTY WITH C/O SCRATCHES BY HER CAT. PT SEEN AT [facility] YESTERDAY AND STARTED ON DOXY. PT REPORTS SWELLING AND PAIN IS WORSE. PT REPORTS BEING SEEN AT URGENT CARE AGAIN TODAY AND TOLD TO COME TO ED BECAUSE SHE WOULD NEED TO BE ADMITTED TO HOSP. Source: patient Exam Limitations: no limitations History of Present Illness Date Seen by Provider: Feb 07, 2023 Time Seen by Provider: 14:10 Initial Comments 67-year-old female presents to the ER from the [facility] urgent care. She states that on Monday, her cat scratched her hand. She was seen at [facility] urgent care yesterday and given a shot of Rocephin and discharged with doxycycline. Tetanus was also updated at that time. She states she has taken 3 doses of doxycycline. Yesterday her hand was swollen, today the swelling has worsened, also there is also streaking up her arm. She went back to [facility] urgent care today and was given another shot of Rocephin and sent here. She denies known fevers, but reports she was chilling last night. She is not diabetic. Past medical history includes hyperlipidemia, hypertension, hypothyroidism. Allergies and Home Medications Allergies Coded Allergies: No Known Drug Allergies (Verified , 12/08/09) Patient Home Medication List Home Medication List Reviewed: Yes Fluticasone Propionate (Flonase Allergy Relief) 9.9 Ml [place].susp, 1 SPRAY NS BID, (Reported) Entered as Reported by: ROYCE WALLACE on 01/07/16 1406 Loratadine (Loratadine) 10 Mg Tablet, 10 MG PO DAILY, (Reported) Entered as Reported by: NICOLLE WATKINS on 03/09/16 001 Lorazepam (Ativan) 0.5 Mg Tablet, 0.5 MG PO Q6H PRN for DISCOMFORT Prescribed by: MITALI PARKS MD on 01/08/16 1413 Lorazepam (Lorazepam) 0.5 Mg Tablet, 0.5 MG PO BID PRN for ANXIETY Prescribed by: TEREZA CAMPOS on 01/29/19 1156 Nebivolol HCl (Bystolic) 5 Mg Tablet, 5 MG PO DAILY, (Reported) Entered as Reported by: NICOLLE WATKINS on 03/09/16 0017 Nebivolol HCl (Bystolic) 5 Mg Tablet, 5 MG PO DAILY Prescribed by: TEREZA CAMPOS on 01/29/19 1204 Omeprazole Magnesium (Omeprazole Magnesium) 20 Mg Capsule.dr, 20 MG PO DAILY, (Reported) Entered as Reported by: ROYCE WALLACE on 01/07/16 1406 Ondansetron (Ondansetron Odt) 8 Mg Tab.rapdis, 8 MG PO DAILY PRN for NAUSEA, (Reported) Entered as Reported by: ANGELICA CAPONE on 03/31/16 1530 Rosuvastatin Calcium (Crestor) 10 Mg Tablet, 10 MG PO DAILY, (Reported) Entered as Reported by: NICOLLE WATKINS on 03/09/16 001 Sertraline HCl (Sertraline HCl) 50 Mg Tablet, 50 MG PO DAILY, (Reported) Entered as Reported by: ANGELICA CAPONE on 03/31/16 1530 Review of Systems Review of Systems Constitutional: see HPI Past Rsahump-Bwgqab-Xudojb Hx Patient Social History Tobacco Use?: No Smoking Status: Never a Smoker Smokeless Tobacco Frequency: Never a User Use of E-Cig and/or Vaping dev: No Use of E-Cig and/or Vaping Capo: Never a User Substance use?: Yes Substance type: Marijuana Substance frequency: Couple times a week Alcohol Use?: Yes Alcohol Frequency: Couple times a week Pt feels they are or have been: No Seasonal Allergies Seasonal Allergies: Yes (gets allergy shots) Past Medical History Surgeries: No Respiratory: No Cardiac: Yes (HAS HAD NEG CATH IN PAST) High Cholesterol, Hypertension Neurological: Yes Headaches /Migraines Reproductive Disorders: No Gastrointestinal: Yes Hiatal Hernia Musculoskeletal: Yes Arthritis Endocrine: Yes Hypothyroidsim Cancer: No Psychosocial: Yes Anxiety, Depression Blood Disorders: No Physical Exam Vital Signs Vital Signs - First Documented 02/07/23 02/07/23 14:07 16:05 Temp 37.8 Pulse 74 Resp 18 B/P (MAP) 138/75 (96) Pulse Ox 100 O2 Delivery Room Air Capillary Refill : Less Than 3 Seconds General Appearance: WD/WN, no apparent distress Neck: supple, normal inspection Cardiovascular: regular rate, rhythm Respiratory: lungs clear, normal breath sounds, no respiratory distress, no accessory muscle use Extremities: swelling (Left hand and arm), other (Erythema, streaking up the left arm, limited range of motion of hand due to swelling and pain) Neurologic/Psychiatric: alert, normal mood/affect Skin Problem Location: upper extremities Skin Problem Character: erythema, swelling Lymphatic: no adenopathy (No swollen or painful lymph nodes of left axilla) Progress/Results/Core Measures Results/Orders Lab Results Laboratory Tests Test 02/07/23 14:21 02/07/23 14:25 02/07/23 14:50 Range/Units Lactic Acid Level 0.75 0.50-2.00 MMOL/L White Blood Count 12.7 H 4.3-11.0 10^3/uL Red Blood Count 3.75 L 3.80-5.11 10^6/uL Hemoglobin 12.2 11.5-16.0 g/dL Hematocrit 35 35-52 % Mean Corpuscular Volume 93 80-99 fL Mean Corpuscular Hemoglobin 33 25-34 pg Mean Corpuscular Hemoglobin Concent 35 32-36 g/dL Red Cell Distribution Width 12.6 10.0-14.5 % Platelet Count 203 130-400 10^3/uL Mean Platelet Volume 10.2 9.0-12.2 fL Immature Granulocyte % (Auto) 1 % Neutrophils (%) (Auto) 78 H 42-75 % Lymphocytes (%) (Auto) 12 12-44 % Monocytes (%) (Auto) 9 0-12 % Eosinophils (%) (Auto) 0 0-10 % Basophils (%) (Auto) 0 0-10 % Neutrophils # (Auto) 9.9 H 1.8-7.8 10^3/uL Lymphocytes # (Auto) 1.5 1.0-4.0 10^3/uL Monocytes # (Auto) 1.2 H 0.0-1.0 10^3/uL Eosinophils # (Auto) 0.0 0.0-0.3 10^3/uL Basophils # (Auto) 0.0 0.0-0.1 10^3/uL Immature Granulocyte # (Auto) 0.1 0.0-0.1 10^3/uL Prothrombin Time 13.5 12.2-14.7 SEC INR Comment 1.0 0.8-1.4 Activated Partial Thromboplast Time 32 24-35 SEC Sodium Level 131 L 135-145 MMOL/L Potassium Level 4.0 3.6-5.0 MMOL/L Chloride Level 98 98-107 MMOL/L Carbon Dioxide Level 22 21-32 MMOL/L Anion Gap 11 5-14 MMOL/L Blood Urea Nitrogen 10 7-18 MG/DL Creatinine 0.71 0.60-1.30 MG/DL Estimat Glomerular Filtration Rate 94 BUN/Creatinine Ratio 14 Glucose Level 111 H 70-105 MG/DL Calcium Level 9.9 8.5-10.1 MG/DL Corrected Calcium 9.6 8.5-10.1 MG/DL Total Bilirubin 0.5 0.1-1.0 MG/DL Aspartate Amino Transf (AST/SGOT) 218 H 5-34 U/L Alanine Aminotransferase (ALT/SGPT) 209 H 0-55 U/L Alkaline Phosphatase 63 40-136 U/L Total Protein 7.6 6.4-8.2 GM/DL Albumin 4.4 3.2-4.5 GM/DL Erythrocyte Sedimentation Rate 40 H 0-30 MM/HR C-Reactive Protein High Sensitivity 9.06 H 0.00-0.50 MG/DL My Orders Orders - MARLEY SUAREZ APRN Cbc With Automated Diff (02/07/23 14:18) Comprehensive Metabolic Panel (02/07/23 14:18) Blood Culture (02/07/23 14:18) Protime With Inr (02/07/23 14:18) Partial Thromboplastin Time (02/07/23 14:18) Ed Iv/Invasive Line Start (02/07/23 14:18) Vital Signs Adult Sepsis Patie Q15M (02/07/23 14:18) Remove Rings In Anticipation O (02/07/23 14:18) Lactic Acid Analyzer (02/07/23 14:18) Vancomycin Injection (Vancomycin Injecti (02/07/23 14:30) Azithromycin Injection (Zithromax Inject (02/07/23 14:30) Hs C Reactive Protein (02/07/23 14:47) Erythrocyte Sedimentation Rate (02/07/23 14:47) Ed Admission (Communication) (02/07/23 15:41) Medications Given in ED Current Medications Medications Dose Ordered Sig/Renetta Route Start Time Stop Time Status Last Admin Dose Admin Azithromycin 500 mg/Sodium Chloride 250 ml @ 250 mls/hr ONCE ONCE IV 02/07/23 14:30 6/13/23 15:29 DC 02/07/23 14:31 250 MLS/HR Vancomycin HCl 1000 mg/Sodium Chloride 250 ml @ 250 mls/hr ONCE ONCE IV 02/07/23 14:30 02/07/23 15:29 DC 02/07/23 14:31 250 MLS/HR Vital Signs/I&O 02/07/23 02/07/23 14:07 16:05 Temp 37.8 37.4 Pulse 74 87 Resp 18 16 B/P (MAP) 138/75 (96) 134/72 Pulse Ox 100 O2 Delivery Room Air Room Air Blood Pressure Mean: 96 Progress Progress Note : Progress Note Patient seen and evaluated, resting comfortably in bed, no acute distress. Based on exam and symptoms, work-up initiated including CBC, CMP, coags, blood cultures x2, lactic acid, CRP, ESR. Vancomycin and azithromycin ordered. 1526 Labs reviewed. CBC shows slightly elevated WBC 12.7, decreased RBC 3.75, elevated neutrophil percentage 78. ESR elevated 40. CMP shows slightly decreased sodium 131, glucose 111, AST elevated to 18, ALT elevated 209. Uric acid normal 0.75. C-reactive protein elevated 9.06. Coags normal. I called and spoke with Dr. Paige, orthopedics, for consult. He is comfortable with patient staying here. I spoke with Dr. Villalobos, hospitalist, for admission. She agrees to admit. She would like patient admitted inpatient and be started on Zosyn. She will place admission orders. Departure Impression Primary Impression: Cellulitis of left hand Disposition: ADMITTED INPATIENT Condition: Stable Admissions Decision to Admit Reason: Admit from ER (General) Decision to Admit/Date: Feb 07, 2023 Time/Decision to Admit Time: 15:26 Departure-Patient Inst. Referrals: GABBI HUTCHISON DO (PCP/Family) Primary Care Physician MARLEY SUAREZ APRN Feb 07, 2023 14:27"
[2023-02-07] MEDS ORDERED: AZITHROMYCIN INJECTION 500 MG in NS (IVPB) 250 ML IV ONE (14:30)
[2023-02-07] MEDS ORDERED: VANCOMYCIN INJECTION 1,000 MG in NS (IVPB) 250 ML IV ONE (14:30)
[2023-02-07 14:32] LABS: BASOPHILS % (AUTO) 0 % (0-10); EOSINOPHILS % (AUTO) 0 % (0-10); HEMATOCRIT 35 % (35-52); HEMOGLOBIN 12.2 g/dL (11.5-16.0); LYMPHOCYTES # (AUTO) 1.5 10^3/uL (1.0-4.0); LYMPHOCYTES % (AUTO) 12 % (12-44); MEAN CORPUSCULAR HEMOGLOBIN 33 pg (25-34); MEAN CORPUSCULAR HGB CONC 35 g/dL (32-36); MEAN CORPUSCULAR VOLUME 93 fL (80-99); MEAN PLATELET VOLUME 10.2 fL (9.0-12.2); MONOCYTES # (AUTO) 1.2 10^3/uL (0.0-1.0); MONOCYTES % (AUTO) 9 % (0-12); NEUTROPHILS # (AUTO) 9.9 10^3/uL (1.8-7.8); NEUTROPHILS % (AUTO) 78 % (42-75); PLATELET COUNT 203 10^3/uL (130-400); WHITE BLOOD COUNT 12.7 10^3/uL (4.3-11.0)
[2023-02-07 14:48] LABS: ALBUMIN 4.4 GM/DL (3.2-4.5)
[2023-02-07 14:49] LABS: CALCIUM 9.9 MG/DL (8.5-10.1); PROTHROMBIN TIME PATIENT 13.5 SEC (12.2-14.7)
[2023-02-07 14:51] LABS: TOTAL PROTEIN 7.6 GM/DL (6.4-8.2)
[2023-02-07 14:52] LABS: BILIRUBIN,TOTAL 0.5 MG/DL (0.1-1.0)
[2023-02-07 14:54] LABS: CREATININE SERUM 0.71 MG/DL (0.60-1.30)
[2023-02-07] MEDS ORDERED: PIPERACILLIN SODIUM/TAZOBACTAM 4.5 GM in NS (IVPB) 100 ML IV ONE (15:45)
[2023-02-07 16:10] VITALS: BP 145/70
[2023-02-07] MEDS ORDERED: BISACODYL 10 MG SUPP (DULCOLAX) PR PRN (16:15)
[2023-02-07] MEDS ORDERED: MILK OF MAGNESIA 400 MG/5 ML 30 ML UDC PO PRN (16:15)
[2023-02-07] MEDS ORDERED: ONDANSETRON 4 MG (ZOFRAN) ORAL DISSOLVE TAB PO PRN (16:15)
[2023-02-07] MEDS ORDERED: diphenhydrAMINE 25 MG TAB (BENADRYL) PO PRN (16:15)
[2023-02-07] MEDS ORDERED: MELATONIN 3 MG TABLET PO PRN (16:15)
[2023-02-07] MEDS ORDERED: ONDANSETRON 4 MG/2 ML (SDV) Z0FRAN IV PRN (16:15)
[2023-02-07] MEDS ORDERED: ACETAMINOPHEN 325 MG TABLET PO PRN (16:15)
[2023-02-07] MEDS ORDERED: ANTACID SUSP 30 ML UDC (MYLANTA) PO PRN (16:15)
[2023-02-07] MEDS ORDERED: HYDROmorphone 2 MG/ML VIAL (DILAUDID) IV PRN (16:15)
[2023-02-07] MEDS ORDERED: diphenhydrAMINE 50 MG/ML INJ (BENADRYL) IVP PRN (16:15)
[2023-02-07] MEDS ORDERED: LACTULOSE SYRUP 10GM/15ML (ENULOSE) 30ML UDC PO PRN (16:15)
[2023-02-07] MEDS ORDERED: CALCIUM CARBONATE 500 MG (TUMS) TAB.CHEW PO PRN (16:15)
[2023-02-07] MEDS ORDERED: polyethylene glycoL POWDER 17 GM (MIRALAX) PACK PO PRN (16:15)
[2023-02-07] MEDS ORDERED: VANCOMYCIN INJECTION 0.1 MG in NS (IVPB) 250 ML IV SCH (16:15)
--- NOTE | 2023-02-07 16:24 | CONSULTATION REPORT ---
DATE OF SERVICE: 02/07/2023 REASON FOR CONSULTATION: Left hand infection. HISTORY OF PRESENT ILLNESS: The patient is a 67-year-old right hand dominant female who was [ ] by her cat 48 hours ago. She reports that she did not sustain a bite, but noticed last night, she was having left hand pain with associated swelling. She presented today was found to have some erythema and slightly elevated white count. The plan is for admission for cellulitis. PHYSICAL EXAMINATION: Her left hand demonstrates diffuse erythema or warmth dorsally. There is no fluctuance noted. No soft tissue masses are noted. She has no pain on the volar aspect. No tenderness along the flexor tendons. Mild pain posteriorly with flexion of the fingers. No pain palmarly with extension of the fingers. IMPRESSION: Left hand dorsal cellulitis secondary to cat scratch. I agree with plan for IV antibiotics to see no indications for operative intervention currently. We will follow the patient. Job ID: [id number] DocumentID: [id number] Dictated Date: 02/07/2023 16:02:28 Facility Maintenance Manager Date: 02/07/2023 16:22:00 Dictated By: CHARMAINE MURRIETA MD
[2023-02-07 16:41] VITALS: BP 145/70
[2023-02-07] MEDS: ENOXAPARIN 40 MG/0.4 ML (LOVENOX) SYR SC SCH (16:44)
[2023-02-07] MEDS: NS IV 1000 ML 1,000 ML IV SCH (16:44)
[2023-02-07] MEDS ORDERED: PIPERACILLIN SODIUM/TAZOBACTAM 4.5 GM in NS (IVPB) 100 ML IV NR (16:45)
[2023-02-07] MEDS ORDERED: RT-ALBUTEROL SULF 2.5 MG/3 ML PRE-MIX VIAL INH PRN (16:45)
[2023-02-07] MEDS ORDERED: VANCOMYCIN 500 MG/NS 100 ML IV NR ×2 (17:00)
[2023-02-07 19:21] VITALS: BP 103/56
[2023-02-07] MEDS: DOCUSATE SODIUM 100 MG (COLACE) CAP PO SCH (20:34)
[2023-02-07] MEDS: SENNOSIDES 8.6 MG (SENOKOT) TAB PO SCH (20:35)
[2023-02-07] MEDS: PIPERACILLIN SODIUM/TAZOBACTAM 4.5 GM in NS (IVPB) 100 ML IV SCH (23:48)
[2023-02-07 23:50] VITALS: BP 100/54
[2023-02-08 03:24] VITALS: BP 109/57
[2023-02-08] MEDS: NS IV 1000 ML 1,000 ML IV SCH (03:24)
[2023-02-08 05:36] LABS: BASOPHILS % (AUTO) 0 % (0-10); EOSINOPHILS # (AUTO) 0.1 10^3/uL (0.0-0.3); EOSINOPHILS % (AUTO) 1 % (0-10); HEMATOCRIT 31 % (35-52); HEMOGLOBIN 10.5 g/dL (11.5-16.0); LYMPHOCYTES # (AUTO) 1.3 10^3/uL (1.0-4.0); LYMPHOCYTES % (AUTO) 16 % (12-44); MEAN CORPUSCULAR HEMOGLOBIN 32 pg (25-34); MEAN CORPUSCULAR HGB CONC 34 g/dL (32-36); MEAN CORPUSCULAR VOLUME 95 fL (80-99); MEAN PLATELET VOLUME 10.8 fL (9.0-12.2); MONOCYTES # (AUTO) 0.8 10^3/uL (0.0-1.0); MONOCYTES % (AUTO) 9 % (0-12); NEUTROPHILS # (AUTO) 6.3 10^3/uL (1.8-7.8); NEUTROPHILS % (AUTO) 74 % (42-75); PLATELET COUNT 184 10^3/uL (130-400); WHITE BLOOD COUNT 8.6 10^3/uL (4.3-11.0)
--- NOTE | 2023-02-08 05:45 | History & Physical ---
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 She reports the cat scratched her arm on Monday and it worsened rapidly. Dr. Paige has been consulted. She is up-to-date on her tetanus booster. She was placed on vancomycin and Zosyn. She reports that hand is much improved so we will initiate occupational therapy for hand therapy and Hep-Lock IV fluid Source: patient Exam Limitations: no limitations Date Seen 02/08/23 Time Seen by a Provider: 08:45 Attending Physician Kimberly Livingston DO PCP Admitting Physician: Cecilia Villalobos DO Attending Physician: Cecilia Villalobos DO Referring Physician Date of Admission Feb 07, 2023 at 16:09 Home Medications & Allergies Home Medications Reviewed patient Home Medication Reconciliation performed by pharmacy medication reconciliations refrigerator repair technician and/or nursing. Patients Allergies have been reviewed. Allergies Allergies Coded Allergies No Known Drug Allergies (Verified12/08/09) Past Xrxtsnl-Jiwkju-Shxkwm Hx Past Med/Social Hx: Reviewed Nursing Past Med/Soc Hx, Reviewed and Corrections made Patient Social History Marrital Status: Employed/Student: retired Alcohol Use: Denies Use Smoking Status: Never a Smoker 2nd Hand Smoke Exposure: No Recent Hopitalizations: Yes (CHILD ) Seasonal Allergies Seasonal Allergies: Yes (gets allergy shots) Past Medical History Cardiac: High Cholesterol, Hypertension Neurological: Headaches /Migraines Reproductive: No Gastrointestinal: Hiatal Hernia Musculoskeletal: Arthritis Endocrine: Hypothyroidsim Psychosocial: Anxiety, Depression History of Blood Disorders: No Review of Systems Constitutional: see HPI, malaise, weakness Skin: see HPI Physical Exam Physical Exam Vital Signs Vital Signs - First Documented 02/07/23 02/07/23 14:07 16:05 Temp 37.8 Pulse 74 Resp 18 B/P (MAP) 138/75 (96) Pulse Ox 100 O2 Delivery Room Air Capillary Refill : Less Than 3 Seconds Height, Weight, BMI Height: 5'2.00" Weight: 140lbs. 0.0oz. [id number]; 26.04 BMI Method:Stated General Appearance: No Apparent Distress, WD/WN Eyes: Bilateral Eye Normal Inspection, Bilateral Eye PERRL HEENT: PERRL/EOMI, Normal ENT Inspection, Pharynx Normal Neck: Full Range of Motion, Normal Inspection, Non Tender, Supple, Carotid Bruit Respiratory: Chest Non Tender, Lungs Clear, Normal Breath Sounds, No Accessory Muscle Use, No Respiratory Distress Cardiovascular: Regular Rate, Rhythm, No Edema, No Gallop, No JVD, No Murmur, Normal Peripheral Pulses Gastrointestinal: Normal Bowel Sounds, No Organomegaly, No Pulsatile Mass, Non Tender, Soft Back: Normal Inspection, No CVA Tenderness, No Vertebral Tenderness Extremity: Normal Capillary Refill, Normal Inspection, Normal Range of Motion, Non Tender, No Calf Tenderness, No Pedal Edema Neurologic/Psychiatric: Alert, Oriented x3, No Motor/Sensory Deficits, Normal Mood/Affect Skin: Normal Color, Warm/Dry, Rash (Erythema and edema and decreased range of motion left hand with lymphadenitis noted with streaks) Lymphatic: No Adenopathy Results Results/Procedures Labs Laboratory Tests 02/07/23 14:25 02/08/23 05:00 Patient resulted labs reviewed. Assessment/Plan Admission Diagnosis Assessment: Left hand and arm cellulitis Hypothyroidism Migraines Hypertension Hyperlipidemia Plan: IV antibiotics Supportive care Appreciate orthopedics Admission Status: Observation CECILIA VILLALOBOS DO Feb 08, 2023 05:45
[2023-02-08 06:16] LABS: ALBUMIN 3.6 GM/DL (3.2-4.5); BILIRUBIN,TOTAL 0.5 MG/DL (0.1-1.0); CALCIUM 8.8 MG/DL (8.5-10.1); CREATININE SERUM 0.7 MG/DL (0.60-1.30); POTASSIUM 3.9 MMOL/L (3.6-5.0); TOTAL PROTEIN 6.2 GM/DL (6.4-8.2)
[2023-02-08] MEDS: PIPERACILLIN SODIUM/TAZOBACTAM 4.5 GM in NS (IVPB) 100 ML IV SCH ×3 (06:19→23:04)
[2023-02-08 08:02] VITALS: BP 108/54
[2023-02-08] MEDS: DOCUSATE SODIUM 100 MG (COLACE) CAP PO SCH ×2 (08:17→20:16)
[2023-02-08] MEDS: SENNOSIDES 8.6 MG (SENOKOT) TAB PO SCH ×2 (08:17→20:16)
[2023-02-08 11:32] VITALS: BP 123/57
--- NOTE | 2023-02-08 12:15 | Progress Note ---
Standard Progress Note Progress Notes/Assess & Plan Date Seen by a Provider: Feb 08, 2023 Time Seen by a Provider: 12:07 Progress/Assessment & Plan feeling better Laboratory Tests Test 02/07/23 14:21 02/07/23 14:25 02/07/23 14:50 02/08/23 05:00 Range/Units Lactic Acid Level 0.75 0.50-2.00 MMOL/L White Blood Count 12.7 H 8.6 4.3-11.0 10^3/uL Red Blood Count 3.75 L 3.28 L 3.80-5.11 10^6/uL Hemoglobin 12.2 10.5 L 11.5-16.0 g/dL Hematocrit 35 31 L 35-52 % Mean Corpuscular Volume 93 95 80-99 fL Mean Corpuscular Hemoglobin 33 32 25-34 pg Mean Corpuscular Hemoglobin Concent 35 34 32-36 g/dL Red Cell Distribution Width 12.6 12.6 10.0-14.5 % Platelet Count 203 184 130-400 10^3/uL Mean Platelet Volume 10.2 10.8 9.0-12.2 fL Immature Granulocyte % (Auto) 1 0 % Neutrophils (%) (Auto) 78 H 74 42-75 % Lymphocytes (%) (Auto) 12 16 12-44 % Monocytes (%) (Auto) 9 9 0-12 % Eosinophils (%) (Auto) 0 1 0-10 % Basophils (%) (Auto) 0 0 0-10 % Neutrophils # (Auto) 9.9 H 6.3 1.8-7.8 10^3/uL Lymphocytes # (Auto) 1.5 1.3 1.0-4.0 10^3/uL Monocytes # (Auto) 1.2 H 0.8 0.0-1.0 10^3/uL Eosinophils # (Auto) 0.0 0.1 0.0-0.3 10^3/uL Basophils # (Auto) 0.0 0.0 0.0-0.1 10^3/uL Immature Granulocyte # (Auto) 0.1 0.0 0.0-0.1 10^3/uL Prothrombin Time 13.5 12.2-14.7 SEC INR Comment 1.0 0.8-1.4 Activated Partial Thromboplast Time 32 24-35 SEC Sodium Level 131 L 137 135-145 MMOL/L Potassium Level 4.0 3.9 3.6-5.0 MMOL/L Chloride Level 98 109 H 98-107 MMOL/L Carbon Dioxide Level 22 23 21-32 MMOL/L Anion Gap 11 5 5-14 MMOL/L Blood Urea Nitrogen 10 8 7-18 MG/DL Creatinine 0.71 0.70 0.60-1.30 MG/DL Estimat Glomerular Filtration Rate 94 95 BUN/Creatinine Ratio 14 11 Glucose Level 111 H 103 70-105 MG/DL Calcium Level 9.9 8.8 8.5-10.1 MG/DL Corrected Calcium 9.6 9.1 8.5-10.1 MG/DL Total Bilirubin 0.5 0.5 0.1-1.0 MG/DL Aspartate Amino Transf (AST/SGOT) 218 H 143 H 5-34 U/L Alanine Aminotransferase (ALT/SGPT) 209 H 181 H 0-55 U/L Alkaline Phosphatase 63 62 40-136 U/L Total Protein 7.6 6.2 L 6.4-8.2 GM/DL Albumin 4.4 3.6 3.2-4.5 GM/DL Erythrocyte Sedimentation Rate 40 H 0-30 MM/HR C-Reactive Protein High Sensitivity 9.06 H 0.00-0.50 MG/DL Vital Signs Date Time Temp Pulse Resp B/P (MAP) Pulse Ox O2 Delivery O2 Flow Rate FiO2 02/08/23 11:32 36.3 61 20 123/57 (79) 95 Room Air 02/08/23 08:02 36.8 65 20 108/54 (72) 95 Room Air 02/08/23 08:00 Room Air 02/08/23 03:24 36.7 64 18 109/57 (74) 94 Room Air 02/07/23 23:50 37.3 69 18 100/54 (69) 94 Room Air 02/07/23 20:30 Room Air 02/07/23 19:21 37.2 65 16 103/56 (72) 96 Room Air 02/07/23 17:17 Room Air 02/07/23 16:41 36.9 70 97 02/07/23 16:10 36.9 70 18 145/70 (95) 97 Room Air 02/07/23 16:05 37.4 87 16 134/72 100 Room Air 02/07/23 14:07 37.8 74 18 138/75 (96) Room Air I & O 02/08/23 07:00 Intake Total 2390 ml Output Total 1900 ml Balance 490 ml L hand with decreased swelling no pain with AROM of fingers palmarly no fluctuance IMP--improving left hand cellulitis no indications for surgical intervention will follow Focused Exam Lactate Level 02/07/23 14:21: Lactic Acid Level 0.75 CHARMAINE MURRIETA MD Feb 08, 2023 12:15
--- NOTE | 2023-02-08 13:15 | Occupational Therapy Eval ---
OT Evaluation-General/PLF Medical Diagnosis Admission Date Feb 07, 2023 at 16:09 Medical Diagnosis: cat scratch Onset Date: Feb 07, 2023 Therapy Diagnosis Therapy Diagnosis: edema to hand Height/Weight Height (Feet): 5 Height (Inches): 2.00 Weight (Pounds): 140 Weight (Ounces): 0.0 Precautions Precautions/Isolations: Standard Precautions Weight Bear Status Weight Bearing Restriction: Weight Bearing/Tolerated Location Restriction: L UE Referral Referral Reason: Evaluation/Treatment Medical History Additional Medical History Cat scratched hand yesterday, noted pain, edema and redness Reviewed History: Yes Social History Home: Single Level Current Living Status: Spouse ADL-Prior Level of Function SCALE: Activities may be completed with or without assistive devices. 9-Lxxtzvumio-swozruf completes the activity by him/herself with no assistance from a helper. 5-Set-up or Clean-up Assistance-helper sets up or cleans up; patient completes activity. [place] assists only prior to or following the activity. 4-Supervision or Touching Assistance-helper provides verbal cues and/or touching/steadying and/or contact guard assistance as patient completes activity. Assistance may be provided throughout the activity or intermittently. 3-Partial/Moderate Assistance-helper does LESS THAN HALF the effort. [place] lifts, holds or supports trunk or limbs, but provides less than half the effort. 2-Substantial/Maximal Assistance-helper does MORE THAN HALF the effort. [place] lifts or holds trunk or limbs and provides more than half the effort. 3-Gsvxyxarb-svedhi does ALL the effort. Patient does none of the effort to complete the activity. Or, the assistance of 2 or more helpers is required for the patient to complete the activity. If activity was not attempted, code reason: 7-Patient Refused. 9-Not Applicable-not attempted and the patient did not perform the activity before the current illness, exacerbation or injury. 10-Not Attempted due to Environmental Limitations-(lack of equipment, weather restraints, etc.). 88-Not Attempted due to Medical Conditions or Safety Concerns. Self Care: Independent Functional Cognition: Independent Drive Self: Yes OT Current Status Subjective Agreeable to OT Pain Numeric Pain Scale: 5-Moderate Pain Location: Right, Left Location Body Site: Hand Comment: rigth hand also sore from IV. Mental Status/Objective Patient Orientation: Person, Place, Time, Situation Attachments: IV Current Hand Dominance: Right Upper Extremity ROM Left hand mildly compromised w/ ROM d/t edema, able to perform opposition and composite and tip/tip pinch Edema: left hand edema control education provided ADL-Treatment Eating (QC): 6 Oral Hygiene (QC): 6 Shower/Bathe Self (QC): 7 Upper Body Dressing (QC): 4 Lower Body Dressing (QC): 6 On/Off Footwear (QC): 6 Toileting Hygiene (QC): 6 Education OT Patient Education: Correct positioning, Exercise program, Modified ADL techniques, Progress toward Goal/Update tx plan, Purpose of tx/functional activities, Reviewed precautions, Safety issues Teaching Recipient: Patient Teaching Methods: Demonstration, Discussion Response to Teaching: Return Demonstration OT Baccarat Manager Goals Baccarat Manager Goals Patent to demonstrate edema control program to Left hand 1=Demonstrate adherence to instructed precautions during ADL tasks. 2=Patient will verbalize/demonstrate understanding of assistive devices/modifications for ADL. 3=Patient will improve strength/tolerance for activity to enable patient to perform ADL's. OT Education/Plan Problem List/Assessment Assessment: Restricted Funct UE ROM Discharge Recommendations Plan/Recommendations: Discharge/Goals Met Treatment Plan/Plan of Care Treatment,Training & Education: Yes Patient would benefit from OT for education, treatment and training to promote independence in ADL's, mobility, safety and/or upper extremity function for ADL's. Plan of Care: OTHER (Eval and LTG met at evaluation) Treatment Duration: Feb 08, 2023 Frequency: 1 time per week Estimated Hrs Per Day: .25 hour per day Agreement: Yes Rehab Potential: Good Time Start Time: 09:50 Stop Time: 10:10 DATE: Feb 08, 2023 Total Time Billed (hr/min): 20 Billed Treatment Time EVL 20 min HILLARY GIRON OT Feb 08, 2023 13:15
[2023-02-08] MEDS ORDERED: AMLO-250 PO (13:45)
[2023-02-08] MEDS ORDERED: NEBI5TAB11 PO (13:45)
[2023-02-08] MEDS ORDERED: CHOL-34 PO (13:45)
[2023-02-08] MEDS ORDERED: ASCO-262 PO (13:45)
[2023-02-08] MEDS ORDERED: MULT-1029 PO (13:45)
[2023-02-08] MEDS ORDERED: CETI10TA17 PO (13:45)
[2023-02-08] MEDS ORDERED: KRIL1CAP44 PO (13:45)
[2023-02-08] MEDS ORDERED: FLUT9.9S NSEACH (13:45)
[2023-02-08] MEDS ORDERED: SERT-414 PO (13:45)
[2023-02-08] MEDS ORDERED: LEVO75TA PO (13:45)
[2023-02-08] MEDS ORDERED: CALC1CAP21 PO (13:45)
[2023-02-08] MEDS ORDERED: FAMO20TA5 PO (13:45)
[2023-02-08] MEDS ORDERED: NF-CRES10T PO (13:45)
[2023-02-08] MEDS ORDERED: BIOT25007 PO (13:45)
[2023-02-08] MEDS ORDERED: VANCOMYCIN 1 GM/NS 250 ML IVPB IV SCH ×2 (14:00)
[2023-02-08 15:33] VITALS: BP 111/58
[2023-02-08] MEDS: ENOXAPARIN 40 MG/0.4 ML (LOVENOX) SYR SC SCH (16:12)
[2023-02-08] MEDS ORDERED: NON-FORMULARY MEDICATION 1 EA EA (Cetirizine HCl 10 MG) PO PRN (17:30)
[2023-02-08] MEDS ORDERED: LORATADINE (CLARITIN) 10 MG TAB PO PRN (17:45)
[2023-02-08 19:30] VITALS: BP 157/71
[2023-02-08] MEDS: FLUTICASONE NASAL SPRAY (FLONASE) 16 GM BTL NS SCH (20:15)
[2023-02-08] MEDS ORDERED: AST PO SCH (21:00)
[2023-02-08] MEDS ORDERED: ROSUVASTATIN 10 MG (CRESTOR) TABLET PO SCH (21:00)
[2023-02-08] MEDS ORDERED: DHA PO SCH (21:00)
[2023-02-08] MEDS ORDERED: amLODIPine 5 MG (NORVASC) TAB PO SCH (21:00)
[2023-02-08] MEDS ORDERED: KRILL PO SCH (21:00)
[2023-02-08] MEDS ORDERED: SERTRALINE 50 MG (ZOLOFT) TABLET PO SCH (21:00)
[2023-02-08] MEDS ORDERED: [UNRECOGNIZED DRUG - OTHER] PO SCH (21:00)
[2023-02-08] MEDS ORDERED: FAMOTIDINE 20 MG (PEPCID) TABLET PO SCH (21:00)
[2023-02-08] MEDS ORDERED: NON-FORMULARY MEDICATION 1 EA EA (Fluticasone Propionate (Flonase Allergy Relief) 1 SPRAY) NSEACH SCH (21:00)
[2023-02-08] MEDS ORDERED: EPA PO SCH (21:00)
[2023-02-08] MEDS ORDERED: PHOSPHO PO SCH (21:00)
[2023-02-08] MEDS ORDERED: SERTRALINE 100 MG (ZOLOFT) TAB PO SCH (21:00)
[2023-02-08] MEDS ORDERED: NEBIVOLOL HCL 5 MG PO SCH (21:00)
[2023-02-08 23:10] VITALS: BP 104/57
[2023-02-09 03:15] VITALS: BP 109/54
[2023-02-09 05:35] LABS: BASOPHILS # (AUTO) 0.1 10^3/uL (0.0-0.1); BASOPHILS % (AUTO) 1 % (0-10); EOSINOPHILS # (AUTO) 0.4 10^3/uL (0.0-0.3); EOSINOPHILS % (AUTO) 6 % (0-10); HEMATOCRIT 31 % (35-52); HEMOGLOBIN 10.4 g/dL (11.5-16.0); LYMPHOCYTES # (AUTO) 1.5 10^3/uL (1.0-4.0); LYMPHOCYTES % (AUTO) 25 % (12-44); MEAN CORPUSCULAR HEMOGLOBIN 32 pg (25-34); MEAN CORPUSCULAR HGB CONC 34 g/dL (32-36); MEAN CORPUSCULAR VOLUME 95 fL (80-99); MEAN PLATELET VOLUME 10.8 fL (9.0-12.2); MONOCYTES # (AUTO) 0.7 10^3/uL (0.0-1.0); MONOCYTES % (AUTO) 12 % (0-12); NEUTROPHILS # (AUTO) 3.3 10^3/uL (1.8-7.8); NEUTROPHILS % (AUTO) 56 % (42-75); PLATELET COUNT 200 10^3/uL (130-400); WHITE BLOOD COUNT 5.9 10^3/uL (4.3-11.0)
[2023-02-09 05:46] LABS: ALBUMIN 3.7 GM/DL (3.2-4.5); POTASSIUM 3.9 MMOL/L (3.6-5.0)
[2023-02-09 05:47] LABS: CALCIUM 9.5 MG/DL (8.5-10.1)
[2023-02-09 05:49] LABS: TOTAL PROTEIN 6.5 GM/DL (6.4-8.2)
[2023-02-09 05:50] LABS: BILIRUBIN,TOTAL 0.4 MG/DL (0.1-1.0)
[2023-02-09 05:52] LABS: CREATININE SERUM 0.72 MG/DL (0.60-1.30)
[2023-02-09] MEDS: PIPERACILLIN SODIUM/TAZOBACTAM 4.5 GM in NS (IVPB) 100 ML IV SCH (05:56)
[2023-02-09] MEDS ORDERED: LEVOTHYROXINE 75 MCG (LEVOTHROID) TABLET PO SCH (06:30)
[2023-02-09] MEDS ORDERED: MULTIVIT W/MINERALS TAB (THERAGRAN M) PO SCH (07:00)
--- NOTE | 2023-02-09 07:38 | Progress Note ---
Standard Progress Note Progress Notes/Assess & Plan Date Seen by a Provider: Feb 09, 2023 Time Seen by a Provider: 07:28 Progress/Assessment & Plan feeling better Laboratory Tests Test 02/07/23 14:21 02/07/23 14:25 02/07/23 14:50 02/08/23 05:00 Range/Units Lactic Acid Level 0.75 0.50-2.00 MMOL/L White Blood Count 12.7 H 8.6 4.3-11.0 10^3/uL Red Blood Count 3.75 L 3.28 L 3.80-5.11 10^6/uL Hemoglobin 12.2 10.5 L 11.5-16.0 g/dL Hematocrit 35 31 L 35-52 % Mean Corpuscular Volume 93 95 80-99 fL Mean Corpuscular Hemoglobin 33 32 25-34 pg Mean Corpuscular Hemoglobin Concent 35 34 32-36 g/dL Red Cell Distribution Width 12.6 12.6 10.0-14.5 % Platelet Count 203 184 130-400 10^3/uL Mean Platelet Volume 10.2 10.8 9.0-12.2 fL Immature Granulocyte % (Auto) 1 0 % Neutrophils (%) (Auto) 78 H 74 42-75 % Lymphocytes (%) (Auto) 12 16 12-44 % Monocytes (%) (Auto) 9 9 0-12 % Eosinophils (%) (Auto) 0 1 0-10 % Basophils (%) (Auto) 0 0 0-10 % Neutrophils # (Auto) 9.9 H 6.3 1.8-7.8 10^3/uL Lymphocytes # (Auto) 1.5 1.3 1.0-4.0 10^3/uL Monocytes # (Auto) 1.2 H 0.8 0.0-1.0 10^3/uL Eosinophils # (Auto) 0.0 0.1 0.0-0.3 10^3/uL Basophils # (Auto) 0.0 0.0 0.0-0.1 10^3/uL Immature Granulocyte # (Auto) 0.1 0.0 0.0-0.1 10^3/uL Prothrombin Time 13.5 12.2-14.7 SEC INR Comment 1.0 0.8-1.4 Activated Partial Thromboplast Time 32 24-35 SEC Sodium Level 131 L 137 135-145 MMOL/L Potassium Level 4.0 3.9 3.6-5.0 MMOL/L Chloride Level 98 109 H 98-107 MMOL/L Carbon Dioxide Level 22 23 21-32 MMOL/L Anion Gap 11 5 5-14 MMOL/L Blood Urea Nitrogen 10 8 7-18 MG/DL Creatinine 0.71 0.70 0.60-1.30 MG/DL Estimat Glomerular Filtration Rate 94 95 BUN/Creatinine Ratio 14 11 Glucose Level 111 H 103 70-105 MG/DL Calcium Level 9.9 8.8 8.5-10.1 MG/DL Corrected Calcium 9.6 9.1 8.5-10.1 MG/DL Total Bilirubin 0.5 0.5 0.1-1.0 MG/DL Aspartate Amino Transf (AST/SGOT) 218 H 143 H 5-34 U/L Alanine Aminotransferase (ALT/SGPT) 209 H 181 H 0-55 U/L Alkaline Phosphatase 63 62 40-136 U/L Total Protein 7.6 6.2 L 6.4-8.2 GM/DL Albumin 4.4 3.6 3.2-4.5 GM/DL Erythrocyte Sedimentation Rate 40 H 0-30 MM/HR C-Reactive Protein High Sensitivity 9.06 H 0.00-0.50 MG/DL Vital Signs Date Time Temp Pulse Resp B/P (MAP) Pulse Ox O2 Delivery O2 Flow Rate FiO2 02/08/23 11:32 36.3 61 20 123/57 (79) 95 Room Air 02/08/23 08:02 36.8 65 20 108/54 (72) 95 Room Air 02/08/23 08:00 Room Air 02/08/23 03:24 36.7 64 18 109/57 (74) 94 Room Air 02/07/23 23:50 37.3 69 18 100/54 (69) 94 Room Air 02/07/23 20:30 Room Air 02/07/23 19:21 37.2 65 16 103/56 (72) 96 Room Air 02/07/23 17:17 Room Air 02/07/23 16:41 36.9 70 97 02/07/23 16:10 36.9 70 18 145/70 (95) 97 Room Air 02/07/23 16:05 37.4 87 16 134/72 100 Room Air 02/07/23 14:07 37.8 74 18 138/75 (96) Room Air I & O 02/08/23 07:00 Intake Total 2390 ml Output Total 1900 ml Balance 490 ml L hand with decreased swelling no pain with AROM of fingers palmarly no fluctuance IMP--improving left hand cellulitis no indications for surgical intervention will follow Final Diagnosis Much improved Laboratory Tests Test 02/09/23 05:11 Range/Units White Blood Count 5.9 4.3-11.0 10^3/uL Red Blood Count 3.26 L 3.80-5.11 10^6/uL Hemoglobin 10.4 L 11.5-16.0 g/dL Hematocrit 31 L 35-52 % Mean Corpuscular Volume 95 80-99 fL Mean Corpuscular Hemoglobin 32 25-34 pg Mean Corpuscular Hemoglobin Concent 34 32-36 g/dL Red Cell Distribution Width 12.7 10.0-14.5 % Platelet Count 200 130-400 10^3/uL Mean Platelet Volume 10.8 9.0-12.2 fL Immature Granulocyte % (Auto) 0 % Neutrophils (%) (Auto) 56 42-75 % Lymphocytes (%) (Auto) 25 12-44 % Monocytes (%) (Auto) 12 0-12 % Eosinophils (%) (Auto) 6 0-10 % Basophils (%) (Auto) 1 0-10 % Neutrophils # (Auto) 3.3 1.8-7.8 10^3/uL Lymphocytes # (Auto) 1.5 1.0-4.0 10^3/uL Monocytes # (Auto) 0.7 0.0-1.0 10^3/uL Eosinophils # (Auto) 0.4 H 0.0-0.3 10^3/uL Basophils # (Auto) 0.1 0.0-0.1 10^3/uL Immature Granulocyte # (Auto) 0.0 0.0-0.1 10^3/uL Sodium Level 138 135-145 MMOL/L Potassium Level 3.9 3.6-5.0 MMOL/L Chloride Level 107 98-107 MMOL/L Carbon Dioxide Level 24 21-32 MMOL/L Anion Gap 7 5-14 MMOL/L Blood Urea Nitrogen 7 7-18 MG/DL Creatinine 0.72 0.60-1.30 MG/DL Estimat Glomerular Filtration Rate 92 BUN/Creatinine Ratio 10 Glucose Level 96 70-105 MG/DL Calcium Level 9.5 8.5-10.1 MG/DL Corrected Calcium 9.7 8.5-10.1 MG/DL Total Bilirubin 0.4 0.1-1.0 MG/DL Aspartate Amino Transf (AST/SGOT) 193 H 5-34 U/L Alanine Aminotransferase (ALT/SGPT) 280 H 0-55 U/L Alkaline Phosphatase 82 40-136 U/L Total Protein 6.5 6.4-8.2 GM/DL Albumin 3.7 3.2-4.5 GM/DL Vital Signs Date Time Temp Pulse Resp B/P (MAP) Pulse Ox O2 Delivery O2 Flow Rate FiO2 02/09/23 03:15 36.4 60 17 109/54 (72) 94 Room Air 02/08/23 23:10 36.4 65 18 104/57 (73) 92 Room Air 02/08/23 20:00 Room Air 02/08/23 19:30 36.5 81 18 157/71 (99) 97 Room Air 02/08/23 15:33 36.6 63 18 111/58 (75) 99 Room Air 02/08/23 11:32 36.3 61 20 123/57 (79) 95 Room Air 02/08/23 08:02 36.8 65 20 108/54 (72) 95 Room Air 02/08/23 08:00 Room Air I & O 02/09/23 07:00 Intake Total 5930 ml Output Total 5400 ml Balance 530 ml L hand with imroved erythema and edema no fluctuance no tenderness of flexor tendons Imp--improving left hand cellulitis treatment per PCP will see PRN Focused Exam Lactate Level 02/07/23 14:21: Lactic Acid Level 0.75 CHARMAINE MURRIETA MD Feb 09, 2023 07:38
[2023-02-09] MEDS ORDERED: ASCORBIC ACID (VIT C) 500 MG TABLET PO SCH (08:00)
[2023-02-09 08:06] VITALS: BP 109/60
[2023-02-09] MEDS ORDERED: VITAMIN D3 25 MCG (1,000 UNITS) TABLET PO SCH (09:00)
[2023-02-09] MEDS ORDERED: NON-FORMULARY MEDICATION 1 EA EA (Ascorbate Calcium (Vitamin C) 500 MG) PO SCH (09:00)
[2023-02-09] MEDS ORDERED: BIOTIN 2500 MCG PO SCH (09:00)
[2023-02-09] MEDS ORDERED: NON-FORMULARY MEDICATION 1 EA EA (Multivit-Min/FA/Lycopene/Lut (Centrum Silver Tablet) 1 E PO SCH (09:00)
[2023-02-09] MEDS ORDERED: CALCIUM CARB + VIT D 600 MG (CALCARB + D) TAB PO SCH (09:00)
[2023-02-09] MEDS ORDERED: NON-FORMULARY MEDICATION 1 EA EA (Calcium Carbonate/Vitamin D3 (Calcium 600 + Vit D 400 So PO SCH (09:00)
[2023-02-09] MEDS: DOCUSATE SODIUM 100 MG (COLACE) CAP PO SCH (09:16)
[2023-02-09] MEDS: SENNOSIDES 8.6 MG (SENOKOT) TAB PO SCH (09:16)
[2023-02-09] MEDS: FLUTICASONE NASAL SPRAY (FLONASE) 16 GM BTL NS SCH (09:17)
[2023-02-09] MEDS ORDERED: AMOX1TAB12 PO (10:42)
[2023-02-09] MEDS ORDERED: NF-CRES10T PO (10:42)
[2023-02-09] MEDS ORDERED: DOXY100T2 PO (10:42)
--- NOTE | 2023-02-09 10:42 | Discharge Summary ---
Diagnosis/Chief Complaint Date of Admission Feb 07, 2023 at 16:09 Date of Discharge Discharge Date: Feb 09, 2023 Discharge Diagnosis Assessment: Left hand and arm cellulitis Hypothyroidism Migraines Hypertension Hyperlipidemia Plan: IV antibiotics Supportive care Appreciate orthopedics Discharge Summary Discharge Physical Examination Allergies: Coded Allergies: No Known Drug Allergies (Verified , 12/08/09) Vitals & I&Os Vital Signs Date Time Temp Pulse Resp B/P (MAP) Pulse Ox O2 Delivery O2 Flow Rate FiO2 02/09/23 14:10 02/09/23 11:32 36.9 55 20 98 Room Air General Appearance: Alert, Oriented X3, Cooperative Respiratory: Clear to Auscultation Cardiovascular: Regular Rate Skin: Other (Improved cellulitis and edema of the left arm and hand) Psych/Mental Status: Mental Status NL Hospital Course Was the Problem List Reviewed?: Yes Hospital course: Patient had an uneventful hospital course after she was admitted for cellulitis of the left hand and left arm due to scratches from the cat. She failed Rocephin antibiotic IM and doxycycline. She was placed on vancomycin and Zosyn with good results and labs returned back to normal. She was deemed stable for discharge was placed on broad-spectrum oral antibiotics and she will see her primary in 1 week. Labs (last 24 hrs) Laboratory Tests 02/07/23 14:21: Lactic Acid Level 0.75 02/07/23 14:25: White Blood Count 12.7H, Red Blood Count 3.75L, Hemoglobin 12.2, Hematocrit 35, Mean Corpuscular Volume 93, Mean Corpuscular Hemoglobin 33, Mean Corpuscular Hemoglobin Concent 35, Red Cell Distribution Width 12.6, Platelet Count 203, Mean Platelet Volume 10.2, Immature Granulocyte % (Auto) 1, Neutrophils (%) (Auto) 78H, Lymphocytes (%) (Auto) 12, Monocytes (%) (Auto) 9, Eosinophils (%) (Auto) 0, Basophils (%) (Auto) 0, Neutrophils # (Auto) 9.9H, Lymphocytes # (Auto) 1.5, Monocytes # (Auto) 1.2H, Eosinophils # (Auto) 0.0, Basophils # (Auto) 0.0, Immature Granulocyte # (Auto) 0.1, Prothrombin Time 13.5, INR Comment 1.0, Activated Partial Thromboplast Time 32, Sodium Level 131L, Potassium Level 4.0, Chloride Level 98, Carbon Dioxide Level 22, Anion Gap 11, Blood Urea Nitrogen 10, Creatinine 0.71, Estimat Glomerular Filtration Rate 94, BUN/Creatinine Ratio 14, Glucose Level 111H, Calcium Level 9.9, Corrected Calcium 9.6, Total Bilirubin 0.5, Aspartate Amino Transf (AST/SGOT) 218H, Alanine Aminotransferase (ALT/SGPT) 209H, Alkaline Phosphatase 63, Total Protein 7.6, Albumin 4.4 02/07/23 14:50: Erythrocyte Sedimentation Rate 40H, C-Reactive Protein High Sensitivity 9.06H 02/08/23 05:00: White Blood Count 8.6, Red Blood Count 3.28L, Hemoglobin 10.5L, Hematocrit 31L, Mean Corpuscular Volume 95, Mean Corpuscular Hemoglobin 32, Mean Corpuscular Hemoglobin Concent 34, Red Cell Distribution Width 12.6, Platelet Count 184, Nel n Platelet Volume 10.8, Immature Granulocyte % (Auto) 0, Neutrophils (%) (Auto) 74, Lymphocytes (%) (Auto) 16, Monocytes (%) (Auto) 9, Eosinophils (%) (Auto) 1, Basophils (%) (Auto) 0, Neutrophils # (Auto) 6.3, Lymphocytes # (Auto) 1.3, Monocytes # (Auto) 0.8, Eosinophils # (Auto) 0.1, Basophils # (Auto) 0.0, Immature Granulocyte # (Auto) 0.0, Sodium Level 137, Potassium Level 3.9, Chloride Level 109H, Carbon Dioxide Level 23, Anion Gap 5, Blood Urea Nitrogen 8, Creatinine 0.70, Estimat Glomerular Filtration Rate 95, BUN/Creatinine Ratio 11, Glucose Level 103, Calcium Level 8.8, Corrected Calcium 9.1, Total Bilirubin 0.5, Aspartate Amino Transf (AST/SGOT) 143H, Alanine Aminotransferase (ALT/SGPT) 181H, Alkaline Phosphatase 62, Total Protein 6.2L, Albumin 3.6 02/09/23 05:11: White Blood Count 5.9, Red Blood Count 3.26L, Hemoglobin 10.4L, Hematocrit 31L, Mean Corpuscular Volume 95, Mean Corpuscular Hemoglobin 32, Mean Corpuscular Hemoglobin Concent 34, Red Cell Distribution Width 12.7, Platelet Count 200, Mean Platelet Volume 10.8, Immature Granulocyte % (Auto) 0, Neutrophils (%) (Auto) 56, Lymphocytes (%) (Auto) 25, Monocytes (%) (Auto) 12, Eosinophils (%) (Auto) 6, Basophils (%) (Auto) 1, Neutrophils # (Auto) 3.3, Lymphocytes # (Auto) 1.5, Monocytes # (Auto) 0.7, Eosinophils # (Auto) 0.4H, Basophils # (Auto) 0.1, Immature Granulocyte # (Auto) 0.0, Sodium Level 138, Potassium Level 3.9, Chloride Level 107, Carbon Dioxide Level 24, Anion Gap 7, Blood Urea Nitrogen 7, Creatinine 0.72, Estimat Glomerular Filtration Rate 92, BUN/Creatinine Ratio 10, Glucose Level 96, Calcium Level 9.5, Corrected Calcium 9.7, Total Bilirubin 0.4, Aspartate Amino Transf (AST/SGOT) 193H, Alanine Aminotransferase (ALT/SGPT) 280H , Alkaline Phosphatase 82, Total Protein 6.5, Albumin 3.7 Microbiology 02/07/23 Blood Culture - Preliminary, Resulted No growth Pending Labs Microbiology Date/Time Source Procedure Growth Status 02/07/23 14:41 Peripheral Rt Ac Blood Culture - Preliminary No growth Resulted 02/07/23 14:40 Peripheral Rt Ac Blood Culture - Preliminary No growth Resulted Laboratory Tests 02/07/23 14:21: Lactic Acid Level 0.75 02/07/23 14:25: White Blood Count 12.7, Red Blood Count 3.75, Hemoglobin 12.2, Hematocrit 35, Mean Corpuscular Volume 93, Mean Corpuscular Hemoglobin 33, Mean Corpuscular Hemoglobin Concent 35, Red Cell Distribution Width 12.6, Platelet Count 203, Mean Platelet Volume 10.2, Immature Granulocyte % (Auto) 1, Neutrophils (%) (Auto) 78, Lymphocytes (%) (Auto) 12, Monocytes (%) (Auto) 9, Eosinophils (%) (Auto) 0, Basophils (%) (Auto) 0, Neutrophils # (Auto) 9.9, Lymphocytes # (Auto) 1.5, Monocytes # (Auto) 1.2, Eosinophils # (Auto) 0.0, Basophils # (Auto) 0.0, Immature Granulocyte # (Auto) 0.1, Prothrombin Time 13.5, INR Comment 1.0, Activated Partial Thromboplast Time 32, Sodium Level 131, Potassium Level 4.0, Chloride Level 98, Carbon Dioxide Level 22, Anion Gap 11, Blood Urea Nitrogen 10, Creatinine 0.71, Estimat Glomerular Filtration Rate 94, BUN/Creatinine Ratio 14, Glucose Level 111, Calcium Level 9.9, Corrected Calcium 9.6, Total Bilirubin 0.5, Aspartate Amino Transf (AST/SGOT) 218, Alanine Aminotransferase (ALT/SGPT) 209, Alkaline Phosphatase 63, Total Protein 7.6, Albumin 4.4 02/07/23 14:50: Erythrocyte Sedimentation Rate 40, C-Reactive Protein High Sensitivity 9.06 02/08/23 05:00: White Blood Count 8.6, Red Blood Count 3.28, Hemoglobin 10.5, Hematocrit 31, Mean Corpuscular Volume 95, Mean Corpuscular Hemoglobin 32, Mean Corpuscular Hemoglobin Concent 34, Red Cell Distribution Width 12.6, Platelet Count 184, Mean Platelet Volume 10.8, Immature Granulocyte % (Auto) 0, Neutrophils (%) (Auto) 74, Lymphocytes (%) (Auto) 16, Monocytes (%) (Auto) 9, Eosinophils (%) (Auto) 1, Basophils (%) (Auto) 0, Neutrophils # (Auto) 6.3, Lymphocytes # (Auto) 1.3, Monocytes # (Auto) 0.8, Eosinophils # (Auto) 0.1, Basophils # (Auto) 0.0, Immature Granulocyte # (Auto) 0.0, Sodium Level 137, Potassium Level 3.9, Chloride Level 109, Carbon Dioxide Level 23, Anion Gap 5, Blood Urea Nitrogen 8, Creatinine 0.70, Estimat Glomerular Filtration Rate 95, BUN/Creatinine Ratio 11, Glucose Level 103, Calcium Level 8.8, Corrected Calcium 9.1, Total Bilirubin 0.5, Aspartate Amino Transf (AST/SGOT) 143, Alanine Aminotransferase (ALT/SGPT) 181, Alkaline Phosphatase 62, Total Protein 6.2, Albumin 3.6 02/09/23 05:11: White Blood Count 5.9, Red Blood Count 3.26, Hemoglobin 10.4, Hematocrit 31, Mean Corpuscular Volume 95, Mean Corpuscular Hemoglobin 32, Mean Corpuscular Hemoglobin Concent 34, Red Cell Distribution Width 12.7, Platelet Count 200, Mean Platelet Volume 10.8, Immature Granulocyte % (Auto) 0, Neutrophils (%) (Auto) 56, Lymphocytes (%) (Auto) 25, Monocytes (%) (Auto) 12, Eosinophils (%) (Auto) 6, Basophils (%) (Auto) 1, Neutrophils # (Auto) 3.3, Lymphocytes # (Auto) 1.5, Monocytes # (Auto) 0.7, Eosinophils # (Auto) 0.4, Basophils # (Auto) 0.1, Immature Granulocyte # (Auto) 0.0, Sodium Level 138, Potassium Level 3.9, Chloride Level 107, Carbon Dioxide Level 24, Anion Gap 7, Blood Urea Nitrogen 7, Creatinine 0.72, Estimat Glomerular Filtration Rate 92, BUN/Creatinine Ratio 10, Glucose Level 96, Calcium Level 9.5, Corrected Calcium 9.7, Total Bilirubin 0.4, Aspartate Amino Transf (AST/SGOT) 193, Alanine Aminotransferase (ALT/SGPT) 280, Alkaline Phosphatase 82, Total Protein 6.5, Albumin 3.7 Discharge Home Medications: Active Scripts Active Amox Tr-K Clv 875-125 mg Tab (Amoxicillin/Potassium Clav) 875 Mg-125 Mg Tablet 1 Each PO BID Doxycycline Hyclate 100 Mg Tablet 100 Mg PO BID 6 Days Crestor (Rosuvastatin Calcium) 10 Mg Tablet 10 Mg PO HS 30 Days hold for 30 days Reported Biotin 2,500 Mcg Capsule 2,500 Mcg PO DAILY Krill Oil 600 mg Softgel (Krill/Om-3/Dha/Epa/Phospho/Ast) 600-125 Mg Capsule 1 Each PO TID Vitamin D3 (Cholecalciferol (Vitamin D3)) 25 Mcg (1000 Unit) Tablet 25 Mcg PO DAILY Calcium 600 + Vit D 400 Softgl (Calcium Carbonate/Vitamin D3) 600 Mg Calcium-10 Mcg (400 Unit) Capsule 1 Each PO DAILY Centrum Silver Tablet (Multivit-Min/FA/Lycopene/Lut) 0.4 Mg-300 Mcg-250 Mcg Tablet 1 Each PO DAILY Vitamin C (Ascorbate Calcium) 500 Mg Tablet 500 Mg PO DAILY Flonase Allergy Relief (Fluticasone Propionate) 50 Mcg/Actuation [place].susp 1 [place] NSEACH BID Cetirizine HCl 10 Mg Tablet 10 Mg PO DAILY PRN Synthroid (Levothyroxine Sodium) 75 Mcg Tablet 75 Mcg PO DAILY Sertraline HCl 100 Mg Tablet 50 Mg PO HS TAKES OF A 100MG TAB Nebivolol HCl 5 Mg Tablet 5 Mg PO HS Famotidine 20 Mg Tablet 20 Mg PO BID Amlodipine Besylate 5 Mg Tablet 5 Mg PO HS Instructions to patient/family Please see electronic discharge instructions given to patient. CIELO MCCARTHY DO Feb 09, 2023 10:42
[2023-02-09 11:32] VITALS: BP 112/62
[2023-02-09] MEDS ORDERED: FAMOTIDINE 20 MG (PEPCID) TABLET PO SCH (21:00)
== END 2023-02-09 14:13 | disposition home or self-care (01) ==
LOC: EDUNIT# 13:58 → ER 14:00 → 4TH 16:09 → INTOOBSV 16:09 → 4TH 02-09 13:21
PROVIDERS: ADMIT Internal Medicine; ATTEND Internal Medicine
DX: L03.114 Cellulitis of left upper limb (principal); E03.9 Hypothyroidism, unspecified; G43.909 Migraine, unspecified, not intractable, without status migrainosus; I10 Essential (primary) hypertension; E78.5 Hyperlipidemia, unspecified; W55.03XA Scratched by cat, initial encounter
CPT/HCPCS: 80053 ×3; 83605; 85025 ×3; 85610; 85652; 85730; 86141; 87040; 96361; 96366 ×2; 96372 ×2; 96376 ×3; 97165; 99284; G0378; 36415; 96365; 96367; 96368